=== PATIENT | female | born 1955 | race Asian ===

== ENCOUNTER 2021-06-21 00:50 | Outpatient (CLI) | payer OTHER, SELFPAY ==
--- NOTE | 2021-06-21 | DI.RAD_ITS ---
Exam(s) XR LUMBAR SPINE COMPLETE EXAM: XR LUMBAR SPINE COMPLETE CLINICAL HISTORY: LOW BACK PAIN, M54.50,S/P FALL. TECHNIQUE: 2D digital imaging was performed of the lumbar spine. Five images were obtained. AP, la teral, right oblique, left oblique and L5-S1 spot views were obtained. COMPARISON: No exams were available for comparison FINDINGS: BONES: No fracture or destructive lesion. Vertebral bodies are unremarkable. No facet hypertrophy ivelisse ntified. There is an old T11 compression fracture deformity. DISKS: Intervertebral disc spaces are maintained. Small endplate osteophytes are seen at several leve ls of the lumbar spine. ALIGNMENT: Lumbar spinal alignment is within normal limits. No spondylolysis or spondylolisthesis. SOFT TISSUE: Normal. IMPRESSION: No acute fracture or subluxation in the lumbar spine. DATA REPOSITORY: RADIATION DOSE DELIVERED:
--- NOTE | 2021-06-21 | DI.RAD_ITS ---
Exam(s) XR HIP LT COMPLETE AP PELVIS EXAM: XR HIP LT COMPLETE AP PELVIS CLINICAL HISTORY: LT HIP PAIN, S/P FALL. TECHNIQUE: 2D digital imaging was performed of the left hip. Two views were obtained. AP pelvis an d lateral left hip views were obtained. COMPARISON: No exams were available for comparison FINDINGS: BONES: Fragmentation of the superior aspect of the left femoral head is noted. There is loss of the normal spherical shape. No bony destructive lesion is seen. JOINTS: No dislocation present. SOFT TISSUE: Normal. IMPRESSION: Fragmentation and loss of volume of the left femoral head. This may represent an acute fracture. Av ascular necrosis with femoral head collapse should also be considered. Please correlate clinically. DATA REPOSITORY: RADIATION DOSE DELIVERED:
== END 2021-06-21 01:10 ==
PROVIDERS: Visit Provider Registered Nurse
DX: M54.59 Other low back pain (principal); M25.552 Pain in left hip; Z91.81 History of falling; M84.852 Other disorders of continuity of bone, left pelvic region and thigh
CPT/HCPCS: 72110; 73502

== ENCOUNTER 2021-12-15 16:08 | Outpatient (REF) | payer OTHER, SELFPAY ==
[2021-12-15 20:28] LABS: Hemoglobin A1C 6.3 % (<5.7)
[2021-12-15 20:30] LABS: Calculated LDL 209 mg/dL (<100); Cholesterol 297 mg/dL (<200); HDL Cholesterol 59 mg/dL (40-60); Triglyceride 149 mg/dL (<150)
== END 2021-12-15 16:09 | disposition home or self-care (01) ==
LOC: NCHCN 16:08
PROVIDERS: Visit Provider Registered Nurse
DX: R73.9 Hyperglycemia, unspecified (principal); E78.79 Other disorders of bile acid and cholesterol metabolism
CPT/HCPCS: 80061; 83036

== ENCOUNTER 2022-05-11 18:26 | Outpatient (REF) | payer OTHER, SELFPAY ==
[2022-05-11 14:55] LABS: Abs Immature Grans 0.02 10^3/uL (0.0-0.06); Absolute Basophil Count 0.05 10^3/uL (0.0-0.2); Absolute Eosinophil Count 0.06 10^3/uL (0.0-0.7); Absolute Lymphocyte Count 4.14 10^3/uL (1.2-3.4); Absolute Monocyte Count 0.32 10^3/uL (0.1-0.8); Absolute Neutrophil Count 3.78 10^3/uL (1.2-6.7); Basophils % 0.6; Eosinophils % 0.7; HCT 40.3 % (36.0-46.0); HGB 13.5 g/dL (11.2-15.7); Immature Grans % 0.2; Lymphocytes % 49.5; MCH 32.2 pg (27.0-33.0); MCHC 33.5 % (32.0-36.0); MCV 96 fL (80-95); Monocytes % 3.8; Neutrophils % 45.2; Platelet Count 263 10^3/uL (130-400); RBC 4.19 10^6/uL (3.93-5.22); RDW 12.9 % (11.7-14.6); RDW-SD 45.8 fL; WBC 8.37 10^3/uL (4.4-10.8)
[2022-05-11 15:15] LABS: ALT 19 U/L (14-59); AST 28 U/L (15-37); Albumin 3.8 g/dL (3.4-5.0); Alkaline Phosphatase 90 U/L (46-116); Anion Gap 5.6 mmol/L (3-11); BUN 15 mg/dL (7-18); Bilirubin, Total 0.3 mg/dL (0.2-1.0); CO2 28.4 mmol/L (21.0-32.0); CREATININE 0.7 mg/dL (0.55-1.02); Calcium 8.5 mg/dL (8.5-10.1); Chloride 103 mmol/L (98-107); Estimated GFR 94.15 (mL/min/1.73m2); Glucose 143 mg/dL (74-106); Potassium 4.6 mmol/L (3.5-5.1); Sodium 137 mmol/L (136-145); TSH 1.11 uIU/mL (0.36-3.74); Total Protein 7.4 g/dL (6.4-8.2)
== END 2022-05-11 18:27 | disposition home or self-care (01) ==
LOC: NCHCN 18:26
PROVIDERS: Visit Provider Registered Nurse
DX: R42 Dizziness and giddiness (principal)
CPT/HCPCS: 80053; 84443; 85025

== ENCOUNTER 2023-04-10 18:23 | Outpatient (REF) | payer OTHER, SELFPAY ==
[2023-04-10 21:11] LABS: Anion Gap 8.8 mmol/L (3-11); BUN 11 mg/dL (7-18); CO2 27.2 mmol/L (21.0-32.0); CREATININE 0.5 mg/dL (0.55-1.02); Calcium 9.2 mg/dL (8.5-10.1); Calculated LDL 130 mg/dL (<100); Chloride 104 mmol/L (98-107); Cholesterol 230 mg/dL (<200); Estimated GFR 101.46 (mL/min/1.73m2); Glucose 123 mg/dL (74-106); HDL Cholesterol 63 mg/dL (40-60); Potassium 4.1 mmol/L (3.5-5.1); Sodium 140 mmol/L (136-145); Triglyceride 189 mg/dL (<150)
[2023-04-10 21:21] LABS: Hemoglobin A1C 6.3 % (<5.7)
== END 2023-04-10 18:24 | disposition home or self-care (01) ==
LOC: NCHCN 18:23
PROVIDERS: Visit Provider Nurse Practitioner Family
DX: E78.5 Hyperlipidemia, unspecified (principal); R73.03 Prediabetes
CPT/HCPCS: 80048; 80061; 83036

== ENCOUNTER 2023-09-28 11:45 | Outpatient (REF) | payer OTHER, SELFPAY ==
[2023-09-28 14:39] LABS: Abs Immature Grans 0.03 10^3/uL (0.0-0.06); Absolute Basophil Count 0.06 10^3/uL (0.0-0.2); Absolute Lymphocyte Count 3.64 10^3/uL (1.2-3.4); Absolute Monocyte Count 0.49 10^3/uL (0.1-0.8); Absolute Neutrophil Count 3.86 10^3/uL (1.2-6.7); Basophils % 0.7; Eosinophils % 1.2; HCT 40.2 % (36.0-46.0); HGB 13.6 g/dL (11.2-15.7); Immature Grans % 0.4; Lymphocytes % 44.5; MCH 30.4 pg (27.0-33.0); MCHC 33.8 % (32.0-36.0); MCV 90 fL (80-95); MPV 9.3 fL (8.0-11.0); Neutrophils % 47.2; Platelet Count 274 10^3/uL (130-400); RBC 4.47 10^6/uL (3.93-5.22); RDW 12.1 % (11.7-14.6); RDW-SD 39.8 fL; WBC 8.18 10^3/uL (4.4-10.8)
[2023-09-28 15:27] LABS: Hemoglobin A1C 6.3 % (<5.7)
[2023-09-28 15:42] LABS: ALT 36 U/L (14-59); AST 32 U/L (15-37); Albumin 3.9 g/dL (3.4-5.0); Alkaline Phosphatase 71 U/L (46-116); Anion Gap 7.8 mmol/L (3-11); BUN 16 mg/dL (7-18); Bilirubin, Total 0.5 mg/dL (0.2-1.0); CO2 27.2 mmol/L (21.0-32.0); CREATININE 0.6 mg/dL (0.55-1.02); Calcium 8.2 mg/dL (8.5-10.1); Calculated LDL 79 mg/dL (<100); Chloride 107 mmol/L (98-107); Cholesterol 161 mg/dL (<200); Glucose 86 mg/dL (74-106); HDL Cholesterol 62 mg/dL (40-60); Potassium 3.7 mmol/L (3.5-5.1); Sodium 142 mmol/L (136-145); TSH (W/Ref FT4) 1.25 uIU/mL (0.36-3.74); Total Protein 7.7 g/dL (6.4-8.2); Triglyceride 104 mg/dL (<150)
== END 2023-09-28 11:46 | disposition home or self-care (01) ==
LOC: NCHCN 11:45
PROVIDERS: Visit Provider Family Medicine
DX: R53.83 Other fatigue; E78.5 Hyperlipidemia, unspecified; E11.65 Type 2 diabetes mellitus with hyperglycemia
CPT/HCPCS: 80053; 80061; 83036; 84443; 85025

== ENCOUNTER 2024-01-23 14:30 | Outpatient (REF) | payer OTHER, SELFPAY ==
--- OUTSIDE RECORDS SUMMARY | 2024-01-23 14:32 | XMS_ITS ---
Author Organization Unknown Address [address] [place] [address] [phone] Phone Care Team Providers Care Firefighter Name Role Phone NIMCO BARNES Attending Unavailable Social History Type Status Start Date End Date Code Code Syst em Smoking History Never smoker (Never Smoked) 624779529 SNOMED CT Sex Female Hospital Discharge Instructions Should you have any questions prior to discharge, please contact a member of your healthcare team. If you have left the hospital and have any questions, please contact your primary care physician. Reason For Referral No Data Found Implants Implanted LIDA Status Assigning Authority Procedure Date Lot Number Serial Number Manufacturing Date Expiration Date Distinct ID Code Brand Name Model Number Coated hip femur prosthesis , modular 0107 6119 9610 3373 1728 0427 10C2 1294 52 Active FDA Left BRYON 08/11 [id number] 2 10/27/2027 POLARS TEM 8288433 0 Metallic femoral head prosthesis 0103 5960 1047 4230 1728 1028 1018 KM26 320 Active FDA Left BRYON 08/11 [id number] 20 04/28/2028 OXINIU M 9945478 8 Non-constr ained polyethyle ne acetabular liner 0103 5960 1059 8790 1731 0918 1021 JM13 232 Active FDA Left BRYON 08/11 [id number] 32 03/19/2031 R3 0926251 8 Acetabular shell 0103 5960 1059 7571 1731 1011 1021 KW04 022 Active FDA Left BRYON 08/11 [id number] 22 04/11/2031 R3 ACETAB ULAR 7253129 8 Acetabulum prosthesis hole plug 0103 5960 1019 7634 1731 0803 1021 HM04 644 Active FDA Left BRYON 08/11 [id number] 44 02/01/2031 REFLEC TION 9821236 0 Allergies and Adverse Reactions Allergy Substance Reaction Severity Start Date Concern Status Co de Code System No Known Drug Allergies Active 803876437 SNOMED-CT Plan of Treatment MM SCREEN BILAT 10/25/2023 MM SCREEN BILAT 01/19/2022 BONE DENSITY DEXA SPINE & HIP 2 X-RAY 08/03/2021 PRE-OP TESTING 08/01/2021 PRE-OP COVID-19 TESTING 08/09/2021 Encounters Encounter Diagnosis Start Date Code Code Sys tem Avascular necrosis of bone of hip 07/05/2021 1552849 02 SNOMED-CT Personal Care Team Section Performer Name Performer Role Active Date Inactive Da te
--- OUTSIDE RECORDS SUMMARY | 2024-01-23 14:32 | XMS_ITS ---
Author Organization Unknown Address [address] [place] [address] [phone] Phone Care Team Providers Care Potato Chip Sorter Name Role Phone JULISSA LEONALENA Registered Nurse Unavailable REJI Blandon Attending Unavailable [facility]ANG [facility] Unavailable UNLISTED PROVIDER - REQUESTED Xhandoff Un available Results CT LOWER EXT WO CONTRAST LT* - Completed: 06/22/2021 16:29 LOINC: Radiation optimization:?? Al l CT scans at this facility use at least one of these dose optimization techniques: automated exposure control; mA and/or kV adjustment per patient size (includes targeted exams where dose is matched to clinical indication); or iterative reconstruction. CT OF THE PELVIS: Comparison is made with outside exams from [facility] dated 21 June 2021. There is a fracture at the left femoral head with impaction and tiny comminuted fragments. There is a surrounding joint effusion. There is no visible underlying pathologic lesion, although the bones do appear diffusely osteopenic. The right hip appears intact. The visualized portions of the pelvic organs are unremarkable. IMPRESSION: Fracture of the left femoral head with impaction. The findings could be related to avascular necrosis. Dictated by: CEO TERELL GREENWOOD MD Transcribed by: ERIS 06/23/21/09:12 [id number] Electronically Reviewed and Signed By: TERELL GREENWOOD MD 06/27/21 08:35 Copy for: 185 HEALTH INFORMATION MGMT DISCHARGED Social History Type Status Start Date End Date Code Code Syst em Smoking History Never smoker (Never Smoked) 409526476 SNOMED CT Sex Female Vital Signs Vital Sign Value Unit [place] Value [place] Date/Time Recent/Initial? Code Code System Body Mass Index 22.60 kg/m2 06/22/2021 13:42 Initial 58407 -5 LOINC Systolic Blood Pressure 136 mm[Hg] 06/22/2021 13:42 Initial 8480- 6 LOINC Diastolic Blood Pressure 82 mm[Hg] 06/22/2021 13:42 Initial 8462- 4 LOINC Body Surface Area 1.54 m2 06/22/2021 13:42 Initial 3140- 1 LOINC Height 156.006 8 cm 61.42 in 06/22/2021 13:42 Initial 8302- 2 LOINC O2 Saturation 100 % 2020 13:42 Initial 27545 -5 LOINC Pulse 78.0 /min 06/22/2021 13:42 Initial 8867- 4 LOINC Respiration 16 /min 06/22/20 13:42 Initial 9279- 1 LOINC Temperature 36.3 Catherine 97.3 F 06/22/20 13:42 Initial 8310- 5 LOINC Weight 55.00 kg 121.25 lbs 06/22/2021 13:42 Initial 58238 -7 [facility] Hospital Discharge Instructions Should you have any [...] 1294 52 Active FDA Left BRYON 08/11 [id number] 2 10/27/2027 POLARS TEM 1168085 0 Metallic femoral head prosthesis 0103 5960 1047 4230 1728 1028 1018 KM26 320 Active FDA Left BRYON 08/11 [id number] 20 04/28/2028 OXINIU M 0315468 8 Non-constr ained polyethyle ne acetabular liner 0103 5960 1059 8790 1731 0918 1021 JM13 232 Active FDA Left BRYON 08/11 [id number] 32 03/19/2031 R3 9739148 8 Acetabular shell 0103 5960 1059 7571 1731 1011 1021 KW04 022 Active FDA Left BRYON 08/11 [id number] 22 04/11/2031 R3 ACETAB ULAR 8160250 8 Acetabulum prosthesis hole plug 0103 5960 1019 7634 1731 0803 1021 04 644 Active FDA Left BRYON 08/11 [id number] 44 02/01/2031 REFLEC TION 8028457 0 Allergies and Adverse Reactions Allergy Substance Reaction Severity Start Date Concern Status Co de Code System No Known Drug Allergies Active 186588523 SNOMED-CT Plan of Treatment MM SCREEN BILAT 10/25/2023 MM SCREEN BILAT 01/19/2022 BONE DENSITY DEXA SPINE & HIP 2 X-RAY 08/03/2021 PRE-OP TESTING 08/01/2021 PRE-OP COVID-19 TESTING 08/09/2021 Encounters Encounter Diagnosis Start Date Code Code Sys tem Closed fracture of head of left femur 06/22/2021 159 [id number] SNOMED-CT Personal Care Team Section Performer Name Performer Role Active Date Inactive Da juan
--- OUTSIDE RECORDS SUMMARY | 2024-01-23 14:33 | XMS_ITS ---
Author Organization Unknown Address [address] [place] [address] [phone] Phone Care Team Providers Care Donor Services Coordinator Name Role Phone NIMCO BARNES Attending Unavailable CARTER Castanon Primary Unavailable Results XR HIP LT 2-3V* - Completed: 08/03/2021 13:24 LOINC: LEFT HIP - 2 VIEWS:Compariso n CT scan is 06/22/21. There is again seen fragmentation of the superior medial aspect of the left femoral head. There is loss of volume of the head. There is mild sclerosis of the fracture fragments. The findings may represent sequelae of avascular necrosis. Acute fracture cannot be excluded. The bones appear mildly osteopenic. The right hip is well maintained. The sacroiliac joints and symphysis pubis are intact. Dictated by: NADEEN CLARKE MD Transcribed by: TERRA 08/03/2114:41 D Sunday, August 03, 2021 1:30:47 PM [id number] Electronically Reviewed and Signed By: JAMAAL CLARKE MD 08/04/21 12:46 Copy for: 185 HEALTH INFORMATION MGMT Social History Type Status Start Date End Date Code Code Syst em Smoking History Never smoker (Never Smoked) 157692145 SNOMED CT Sex Female Hospital Discharge Instructions [...] 1294 52 Active FDA Left BRYON 08/11 [id number] 2 10/27/2027 POLARS TEM 1054947 0 Metallic femoral head prosthesis 0103 5960 1047 4230 1728 1028 1018 KM26 320 Active FDA Left BRYON 08/11 [id number] 20 04/28/2028 OXINIU M 1056753 8 Non-constr ained polyethyle ne acetabular liner 0103 5960 1059 8790 1731 0918 1021 JM13 232 Active FDA Left BRYON 08/11 [id number] 32 03/19/2031 R3 9873333 8 Acetabular shell 0103 5960 1059 7571 1731 1011 1021 KW04 022 Active FDA Left BRYON 08/11 [id number] 22 04/11/2031 R3 ACETAB ULAR 1149770 8 Acetabulum prosthesis hole plug 0103 5960 1019 7634 1731 0803 1021 HM04 644 Active FDA Left BRYON 08/11 [id number] 44 02/01/2031 REFLEC TION 5692124 0 Allergies and Adverse Reactions Allergy Substance Reaction Severity Start Date Concern Status Co de Code System No Known Drug Allergies Active 477563447 SNOMED-CT Plan of Treatment MM SCREEN BILAT 10/25/2023 MM SCREEN BILAT 01/19/2022 BONE DENSITY DEXA SPINE & HIP 2 X-RAY 08/03/2021 PRE-OP TESTING 08/01/2021 PRE-OP COVID-19 TESTING 08/09/2021 Encounters Encounter Diagnosis Start Date Code Code Sys tem Abnormal findings on diagnostic imaging of limbs 08/03 873839524 [facility]-CT Personal Care Team Section Performer Name Performer Role Active Date Inactive Da juan
--- OUTSIDE RECORDS SUMMARY | 2024-01-23 14:33 | XMS_ITS ---
Author Organization Unknown Address [address] [place] [address] [phone] Phone Care Team Providers Care Gas Truck Driver Name Role Phone NIMCO BARNES Attending Unavailable CARTER Castanon Primary Unavailable Results [facility] - [place] ect Date/Time: 08/09/2021 10:49 [facility] ID: [id number] 8 [place], [place], [id number] LOINC: 12506-5 Test Value Unit Reference Range Code Code System Flag Tier- PRE-OP 65787-2 LOINC SARS COV2 RNA: NEGATIVE REFERENCE RANGE: NEGAT 95609-4 L OINC Social History Type Status Start Date End Date Code Code Syst em Smoking History Never smoker (Never Smoked) 646265579 SNOMED CT Sex Female Hospital Discharge Instructions [...] 1294 52 Active FDA Left BRYON 08/11 [id number] 2 10/27/2027 POLARS TEM 1884522 0 Metallic femoral head prosthesis 0103 5960 1047 4230 1728 1028 1018 KM26 320 Active FDA Left BRYON 08/11 [id number] 20 04/28/2028 TAYLOR Castanon 3617424 8 Non-constr ained polyethyle ne acetabular liner 0103 5960 1059 8790 1731 0918 1021 JM13 232 Active FDA Left BRYON 08/11 [id number] 32 03/19/2031 R3 7030460 8 Acetabular shell 0103 5960 1059 7571 1731 1011 1021 KW04 022 Active FDA Left BRYON 08/11 [id number] 22 04/11/2031 R3 ACETAB ULAR 7690110 8 Acetabulum prosthesis hole plug 0103 5960 1019 7634 1731 0803 1021 HM04 644 Active FDA Left BRYON 08/11 [id number] 44 02/01/2031 REFLEC TION 7925145 0 Allergies and Adverse Reactions Allergy Substance Reaction Severity Start Date Concern Status Co de Code System No Known Drug Allergies Active 546398328 SNOMED-CT Plan of Treatment MM SCREEN BILAT 10/25/2023 MM SCREEN BILAT 01/19/2022 BONE DENSITY DEXA SPINE & HIP 2 X-RAY 08/03/2021 PRE-OP TESTING 08/01/2021 PRE-OP COVID-19 TESTING 08/09/2021 Encounters Encounter Diagnosis Start Date Code Code Sys tem Exposure to SARS-CoV-2 08/09/2021 358681511 [facility] Personal [facility] Team Section Performer Name Performer Role Active Date Inactive Da juan
--- OUTSIDE RECORDS SUMMARY | 2024-01-23 14:34 | XMS_ITS ---
Author Organization Unknown Address [address] [place] [address] [phone] Phone Care Team Providers Care Senior Budget Analyst Name Role Phone NIMCO BARNES Attending Unavailable CARTER Castanon Primary Unavailable Results XR HIP LT 2-3V* - Completed: 09/13/2021 11:50 LOINC: PELVIS/LEFT HIP, 2 VIEWS: Compared to 08/11/2021. Two views reveal satisfactory position and alignment of the components of the recently placed prosthesis.??No fracture nor loosening evident. Dictated by: SANDY CARPENTER MD Transcribed by: ERIS 09/14/21/13:53 [id number] Electronically Reviewed and Signed By: EVA CARPENTER MD 09/16/21 10:24 Copy for: 185 HEALTH INFORMATION MGMT Social History Type Status Start Date End Date Code Code Syst em Smoking History Never smoker (Never Smoked) 230931193 SNOMED CT Sex Female Hospital Discharge Instructions [...] 1294 52 Active FDA Left BRYON 08/11 [id number] 2 10/27/2027 POLARS TEM 8769781 0 Metallic femoral head prosthesis 0103 5960 1047 4230 1728 1028 1018 KM26 320 Active FDA Left BRYON 08/11 [id number] 20 04/28/2028 TAYLOR M 1913742 8 Non-constr ained polyethyle ne acetabular liner 0103 5960 1059 8790 1731 0918 1021 JM13 232 Active FDA Left BRYON 08/11 [id number] 32 03/19/2031 R3 8885241 8 Acetabular shell 0103 5960 1059 7571 1731 1011 1021 KW04 022 Active FDA Left BRYON 08/11 [id number] 22 04/11/2031 R3 ACETAB ULAR 6135527 8 Acetabulum prosthesis hole plug 0103 5960 1019 7634 1731 0803 1021 HM04 644 Active FDA Left BRYON 08/11 [id number] 44 02/01/2031 REFLEC TION 5668285 0 Allergies and Adverse Reactions Allergy Substance Reaction Severity Start Date Concern Status Co de Code System No Known Drug Allergies Active 026851673 SNOMED-CT Plan of Treatment MM SCREEN BILAT 10/25/2023 MM SCREEN BILAT 01/19/2022 BONE DENSITY DEXA SPINE & HIP X-RAY 08/03/2021 PRE-OP TESTING 08/01/2021 PRE-OP COVID-19 TESTING 08/09/2021 Encounters Encounter Diagnosis Start Date Code Code Sys tem Hip joint prosthesis present 09/13/2021 687969991 SNOMED-CT Personal Care Team Section Performer Name Performer Role Active Date Inactive Parish martinez
--- OUTSIDE RECORDS SUMMARY | 2024-01-23 14:34 | XMS_ITS ---
Author Organization Unknown Address [address] [place] [address] [phone] Phone Care Team Providers Care Lap Winder Name Role Phone CARTER Castanon Attending Unavailable Results BD DXA BONE DENSITY HIP AND SPINE - Completed: 01/19/2022 16:14 LOINC: DEXA SCAN:No priors. The bon e mineral density measurements of the lumbar spine correspond to a total T-score of negative 3.9, in the osteoporotic range. The bone mineral density measurements of the right hip correspond to a total T-score of negative 1.9 and a femoral neck T-score of negative 2.8, also in the osteoporotic range. IMPRESSION:Osteoporosis of the lumbar spine and left hip. Dictated by: CEO TERELL GREENWOOD MD Transcribed by: TERRA 01/20/2207:10 D , January 19, 2022 2:02:35 PM [id number] Electronically Reviewed and Signed By: TERELL GREENWOOD MD 02/05/22 12:15 Copy for: CARTER Castanon via fax Copy for: 185 HEALTH INFORMATION MGMT MM SCREENING BILAT MAMMO W T DAPNHIE W CAD - Completed: 01/19/2022 13:43 LOINC: Digital mammograms were inte rpreted according to the usual protocol including computer analysis with CADx system including tomosynthesis. This is a baseline examination. The breasts are composed of scattered fibroglandular densities. No suspicious masses or suspicious microcalcifications are seen. IMPRESSION:Negative mammogram. Yearly screening mammography is recommended. BI-RADS Assessment: Category 1 - Negative BREAST DENSITY: b. There are scattered areas of fibroglandular density. Dictated by: CEO TERELL GREENWOOD MD Transcribed by: TERRA 01/20/2208:14 D , January 19, 2022 2:50:02 PM [id number] Electronically Reviewed and Signed By: TERELL GREENWOOD MD 02/05/22 12:15 TECHNOLOGIST: RT Hilary (R) (M) Copy for: [place] Castanon via fax Copy for: 185 HEALTH INFORMATION MGMT Social History Type Status Start Date End Date Code Code Syst em Smoking History Never smoker (Never Smoked) 046823308 SNOMED CT Sex Female Hospital Discharge Instructions [...] 1294 52 Active FDA Left BRYON 08/11 [id number] 2 10/27/2027 POLARS TEM 2262229 0 Metallic femoral head prosthesis 0103 5960 1047 4230 1728 1028 1018 KM26 320 Active FDA Left BRYON 08/11 [id number] 20 04/28/2028 OXINIU M 2456787 8 Non-constr ained polyethyle ne acetabular liner 0103 5960 1059 8790 1731 0918 1021 JM13 232 Active FDA Left BRYON 08/11 70IP293 32 03/19/2031 R3 3645444 8 Acetabular shell 0103 5960 1059 7571 1731 1011 1021 KW04 022 Active FDA Left BRYON 08/11 [id number] 22 04/11/2031 R3 ACETAB ULAR 2476266 8 Acetabulum prosthesis hole plug 0103 5960 1019 7634 1731 0803 1021 HM04 644 Active FDA Left BRYON 08/11 [id number] 44 02/01/2031 REFLEC TION 2518340 0 Allergies and Adverse Reactions Allergy Substance Reaction Severity Start Date Concern Status Co de Code System No Known Drug Allergies Active 181436452 SNOMED-CT Plan of Treatment MM SCREEN BILAT 10/25/2023 MM SCREEN BILAT 01/19/2022 BONE DENSITY DEXA SPINE & HIP 2 X-RAY 08/03/2021 PRE-OP TESTING 08/01/2021 PRE-OP COVID-19 TESTING 08/09/2021 Encounters Encounter Diagnosis Start Date Code Code Sys tem Encounter for screening mamm ogram for malignant neoplasm of breast 01/19/2022 SNOMED-CT Personal Care Team Section Performer Name Performer Role Active Date Inactive Da te
--- OUTSIDE RECORDS SUMMARY | 2024-01-23 14:34 | XMS_ITS ---
Author Organization Unknown Address [address] [place] [address] [phone] Phone Care Team Providers Care Laundry Route Driver Name Role Phone NIMCO BARNES Attending Unavailable ENZO Amaya MORGUE LIBRARIAN Unavailable GABRIELLA Chow Nurse Practitioner Unavailable CARTER Castanon Primary Unavailable Results XR HIP LT 2-3V* - Completed: 08/11/2021 11:39 LOINC: LEFT HIP IN THE OR:fluorosco py was utilized by Dr. Llanos during the performance of a left total hip replacement. Please refer to the Procedure Report for complete details. Total dose is 3.88 mGy Dictated by: NADEEN CLARKE MD Transcribed by: TERRA 08/11/21/10:52 D August 9:21:04 AM [id number] Electronically Reviewed and Signed By: JAMAAL CLARKE MD 08/11/21 14:45 Copy for: 185 HEALTH INFORMATION MGMT Social History Type Status Start Date End Date Code Code Syst em Smoking History Never smoker (Never Smoked) 884621008 SNOMED CT Sex Female Vital Signs Vital Sign Value Unit [place] Value [place] Unit Date/Time Recent/Initial? Code Code System Body Mass Index 23.44 kg/m2 08/10/2021 11:58 Initial 47153 -5 LOINC Systolic Blood Pressure 110 mm[Hg] 08/11/2021 12:01 Initial 8480- 6 LOINC Diastolic Blood Pressure 75 mm[Hg] 08/11/2021 12:01 Initial 8462- 4 LOINC Body Surface Area 1.52 m2 08/10/2021 11:58 Initial 3140- 1 LOINC Height 152.400 0 cm 60.00 in 08/10/2021 11:58 Initial 8302- 2 LOINC O2 Saturation 99 % 2021 12:01 Initial 94487 -5 LOINC Pulse 67.0 /min 08/11/2021 12:01 Initial 8867- 4 [facility] Respiration 13 /min 08/11/19 12:01 Initial 9279- 1 INC Temperature 36.0 Catherine 96.8 F 08/11/19 12:01 Initial 8310- 5 [facility] Weight 54.43 kg 120.00 lbs 08/10/2021 11:58 Initial 96370 -7 [facility] Hospital Discharge Instructions Should you have any questions prior to discharge, please contact a member of your healthcare team. If you have left the hospital and have any questions, please contact your primary care physician. Reason For Referral No Data Found Procedures Procedure Name Date Status Code Code Syste m Arthroplasty, Acetabular/Pro ximal Femoral Prosthetic Replacement, w/wo Autograft/Allograft 08/11/2021 completed 71054 CPT Anesthesia, Open Proc Involv ing Hip Joint; Total Hip Arthroplasty 08/11/2021 completed 45483 CPT Implants Implanted LIDA Status Assigning Authority Procedure Date Lot Number Serial Number Manufacturing Date Expiration Date Distinct ID Code Brand Name Model Number Coated hip femur prosthesis , modular 0107 6119 9610 3373 1728 0427 10C2 1294 52 Active FDA Left BRYON 08/11 [id number] 2 10/27/2027 POLARS TEM 9900395 0 Metallic femoral head prosthesis 0103 5960 1047 4230 1728 1028 1018 KM26 320 Active FDA Left BRYON 08/11 [id number] 20 04/28/2028 OXINIU M 0237421 8 Non-constr ained polyethyle ne acetabular liner 0103 5960 1059 8790 1731 0918 1021 JM13 232 Active FDA Left BRYON 08/11 [id number] 32 03/19/2031 R3 8795334 8 Acetabular shell 0103 5960 1059 7571 1731 1011 1021 KW04 022 Active FDA Left BRYON 08/11 [id number] 22 04/11/2031 R3 ACETAB ULAR 4493093 8 Acetabulum prosthesis hole plug 0103 5960 1019 7634 1731 0803 1021 HM04 644 Active FDA Left BRYON 08/11 [id number] 44 02/01/2031 REFLEC TION 7623571 0 Allergies and Adverse Reactions Allergy Substance Reaction Severity Start Date Concern Status Co de Code System No Known Drug Allergies Active 384220487 SNOMED-CT Plan of Treatment MM SCREEN BILAT 10/25/2023 MM SCREEN BILAT 01/19/2022 BONE DENSITY DEXA SPINE & HIP 2 X-RAY 08/03/2021 PRE-OP TESTING 08/01/2021 PRE-OP COVID-19 TESTING 08/09/2021 Encounters Encounter Diagnosis Start Date Code Code Sys tem Other osteonecrosis, left femur 08/11/2021 SNOMED-CT Personal Care Team Section Performer Name Performer Role Active Date Inactive Da te
--- OUTSIDE RECORDS SUMMARY | 2024-01-23 14:34 | XMS_ITS ---
Author Organization Unknown Address [address] [place] [address] [phone] Phone Care Team Providers Care Pathology Specialist Name Role Phone NIMCO BARNES Attending Unavailable CARTER Castanon Primary Unavailable Results PT PROTHROMBIN TIME* - Colle ct Date/Time: 08/01/2021 16:05 [facility] ID: [id number] [address] [place] [address], [address] LOINC: 5902-2 Test Value Unit Reference Range Code Code System Flag PROTIME 10.1 seconds L=9.3 H=11.4 5902-2 LOINC INR 0.99 L=2.00 H=3.00 09568-9 LOINC L TYPE AND SCREEN* - Collect D ate/Time: 08/01/2021 16:05 [facility] ID: [id number] [address] [place] [address], [phone] LOINC: Test Value Unit Reference Range Code Code System Flag Blood Group B 883-9 LOINC Rh (D) POSITIVE 39058-1 LOINC Antibody Screen NEGATIVE 1005-8 LOINC NICOTINE AND METABOLITE(COTI NINE) URINE - Collect Date/Time: 08/01/2021 16:05 [facility] ID: [id number] [address] [place] [address], [id number] LOINC: 3854-7 Test Value Unit Reference Range Code Code System Flag Nicotine 30 <5.0 3854-7 LOINC H Cotinine 46 ng/mL <5.0 79854-9 LOINC H Nornicotine See Below <2.0 24565-4 LOINC Anabasine < 2.0 ng/mL <2.0 87445-3 LOINC MRSA/MSSA NASAL COMPLETE BY PCR* - Collect Date/Time: 08/01/2021 16:05 [facility] ID: [id number] [address] [place], [place], [id number] LOINC: Test Value Unit Reference Range Code Code System Flag MRSA NEGATIVE Normal: Negative 48908-4 LOINC MSSA NEGATIVE Normal: Negative CBC W/ DIFFERENTIAL* - Colle ct Date/Time: 08/01/2021 16:05 [facility] ID: [id number] [address] [place], [place], [address] LOINC: 66667-1 Test Value Unit Reference Range Code Code System Flag WBC 9.85 th/cmm L=5.00 H=10.00 6690-2 LOINC NEUT % 50.4 % L=40.0 H=80.0 LYMPH % 41.4 % L=10.0 H=50.0 MONO % 6.6 % L=2.0 H=12.0 52541-9 LOINC EOS % 0.8 % L=0.0 H=8.0 BASO % 0.6 % L=0.0 H=3.0 IG % 0.2 % L=0.0 H=1.1 2514-8 LOINC NRBC % 0.0 % L=0.0 H=0.0 68255-5 LOINC NEUT abs count 5.0 th/cmm L=1.6 H=8.4 751-8 LOINC LYMPH abs count 4.1 th/cmm L=1.5 H=4.0 731-0 LOINC H MONO abs count 0.7 th/cmm L=0.2 H=1.0 742-7 LOINC EOS abs count 0.1 th/cmm L=0.0 H=0.5 711-2 LOINC BASO abs count 0.1 th/cmm L=0.0 H=0.2 704-7 LOINC IG abs count 0.0 th/cmm L=0.0 H=0.1 48163-5 LOINC NRBC abs count 0.0 mil/cmm L=0.0 H=0.0 61222-9 LOINC RBC 4.13 mil/cmm L=3.90 H=5.40 789-8 LOINC HEMOGLOBIN 13.1 gm/dL L=12.0 H=16.0 718-7 LOINC HEMATOCRIT 39 % L=37 H=47 4544-3 LOINC MCV 94 fL L=82 H=92 787-2 LOINC H MCH 31.7 pg L=27.0 H=31.0 785-6 LOINC H MCHC 33.7 % L=32.0 H=36.0 786-4 LOINC RDW-SD 42.7 fL L=39.0 H=49.0 788-0 LOINC PLATELET COUNT 303 th/cmm L=150 H=450 777-3 LOINC BASIC METABOLIC PANEL (BMP) - Collect Date/Time: 08/01/2021 16:05 [facility] ID: [id number] [address] [place], [place], [address] LOINC: 28650-3 Test Value Unit Reference Range Code Code System Flag GLUCOSE 105 mg/dL L=70 H=116 2345-7 LOINC BUN 22 mg/dL L=6 H=25 3094-0 LOINC CREATININE 0.63 mg/dL L=0.51 H=0.95 2160-0 LOINC SODIUM SERUM 141 mmol/L L=136 H=145 2951-2 LOINC POTASSIUM SERUM 4.0 mmol/L L=3.4 H=5.2 2823-3 LOINC CHLORIDE SERUM 104 mmol/L L=96 H=110 2075-0 LOINC CARBON DIOXIDE (CO2) 28 mmol/L L=22 H=34 2028-9 LOINC ANION GAP 9.0 mmol/L 92352-8 LOINC CALCIUM SERUM 8.9 mg/dL L=8.2 H=10.2 48499-1 LOINC AGE 65 years eGFR (non-Afr.Amer.) 94 mL/min 23685-8 LOINC eGFR (Afr-Tristanian) 114 mL/min 25050-4 LOINC Social History Type Status Start Date End Date Code Code Syst em Smoking History Never smoker (Never Smoked) 731070974 SNOMED CT Sex Female Hospital Discharge Instructions [...] 1294 52 Active FDA Left BRYON 08/11 [id number] 2 10/27/2027 POLARS TEM 3438491 0 Metallic femoral head prosthesis 0103 5960 1047 4230 1728 1028 1018 KM26 320 Active FDA Left BRYON 08/11 [id number] 20 04/28/2028 OXINIU M 3340590 8 Non-constr ained polyethyle ne acetabular liner 0103 5960 1059 8790 1731 0918 1021 JM13 232 Active FDA Left BRYON 08/11 95TH407 32 03/19/2031 R3 0278540 8 Acetabular shell 0103 5960 1059 7571 1731 1011 1021 KW04 022 Active FDA Left BRYON 08/11 [id number] 22 04/11/2031 R3 ACETAB ULAR 0863511 8 Acetabulum prosthesis hole plug 0103 5960 1019 7634 1731 0803 1021 HM04 644 Active FDA Left BRYON 08/11 32MB397 44 02/01/2031 REFLEC TION 9544335 0 Allergies and Adverse Reactions Allergy Substance Reaction Severity Start Date Concern Status Co de Code System No Known Drug Allergies Active 062654312 SNOMED-CT Plan of Treatment MM SCREEN BILAT 10/25/2023 MM SCREEN BILAT 01/19/2022 BONE DENSITY DEXA SPINE & HIP 2 X-RAY 08/03/2021 PRE-OP TESTING 08/01/2021 PRE-OP COVID-19 TESTING 08/09/2021 Encounters Encounter Diagnosis Start Date Code Code Sys tem Encounter for other preprocedural examination 08/01/19 SNOMED-CT Personal Care Team Section Performer Name Performer Role Active Date Inactive Da te
--- OUTSIDE RECORDS SUMMARY | 2024-01-23 14:35 | XMS_ITS ---
Author Organization Unknown Address [address] [place] [address] [phone] Phone Care Team Providers Care Family Life Educator Name Role Phone PROVOST LATHAM Attending Unavailable Results MM SCREENING BILAT MAMMO W T DAPHNIE W CAD - Completed: 10/25/2023 15:52 LOINC: [facility] [place], [place] [address] PACS MANAGER MERCHANDISE REPORT Patient Name: FACUNDO LEMOS MRN: Sex: : Age: [id number] F 1955 68 Account: Accession: Admit: StayType: [id number] 10/25/2023 O/P Ordered: Order ID: Submitted: Ordering Provider: 10/25/2023 15:30 [id number] KT YEISON FRANCIS Completed: Technologist: Resulted: 10/25/2023 15:52 BMM 10/25/2023 16:07 Study Description: MM SCREENING BILAT MAMMO W CLARENCE W CAD Study Reason: Screening COMPARISON: 2021 FINDINGS: Mammography/Tomosynthesis: Masses: None seen. Architectural Distortion: None seen. Microcalcifictions: No suspicious pleomorphic-type are seen. Skin Thickening/Nipple Retraction: None. IMPRESSION: 1. No evidence of malignancy is noted. 2. Unless there is more urgent need, follow-up screening mammography is recommended, as per [employer] guidelines. BI-RADS Category 1, negative mammogram. Breast density category B, scattered fibroglandular densities. Breast density Category C or D implies that the patient has dense breast tissue. Dense breast tissue can make it harder to find cancer on a mammogram. Dense breast tissue is also associated with an increased risk of breast cancer. This information about the result of the mammogram report was provided to the patient to raise their awareness. Use this report when you speak with the patient about their risks for breast cancer, which includes their family history. At that time, you may recommend additional screening tests (Ultrasound or MRI) as these tests may add significant information. A negative radiographic report should not delay biopsy if a dominant or clinically suspicious mass is present. Up to ten percent of cancers are not identified on mammography. A negative report may reinforce clinical impression. Adenosis and dense breasts may obscure an underlying neoplasm. False positive reports average 6 to 10%. Patient will receive a letter notifying them of these results. Report Digitally Signed by Mariel Martinez on 10/25/2023 04:07 PM EDT Social History Type Status Start Date End Date Code Code Syst em Smoking History Never smoker (Never Smoked) 520638662 SNOMED CT Sex Female Hospital Discharge Instructions [...] 1294 52 Active FDA Left BRYON 08/11 [id number] 2 10/27/2027 POLARS TEM 5185043 0 Metallic femoral head prosthesis 0103 5960 1047 4230 1728 1028 1018 KM26 320 Active FDA Left BRYON 08/11 [id number] 20 04/28/2028 OXINIU M 0714715 8 Non-constr ained polyethyle ne acetabular liner 0103 5960 1059 8790 1731 0918 1021 JM13 232 Active FDA Left BRYON 08/11 65ZU230 32 03/19/2031 R3 4501094 8 Acetabular shell 0103 5960 1059 7571 1731 1011 1021 KW04 022 Active FDA Left BRYON 08/11 [id number] 22 04/11/2031 R3 ACETAB ULAR 0220793 8 Acetabulum prosthesis hole plug 0103 5960 1019 7634 1731 0803 1021 HM04 644 Active FDA Left BRYON 08/11 45BK275 44 02/01/2031 REFLEC TION 9638055 0 Allergies and Adverse Reactions Allergy Substance Reaction Severity Start Date Concern Status Co de Code System No Known Drug Allergies Active 094103364 SNOMED-CT Plan of Treatment MM SCREEN BILAT 10/25/2023 MM SCREEN BILAT 01/19/2022 BONE DENSITY DEXA SPINE & HIP 2 X-RAY 08/03/2021 PRE-OP TESTING 08/01/2021 PRE-OP COVID-19 TESTING 08/09/2021 Encounters Encounter Diagnosis Start Date Code Code Sys tem Screening mammography 10/25/2023 43845448 SNOMED -CT Personal Care Team Section Performer Name Performer Role Active Date Inactive Da te
--- OUTSIDE RECORDS SUMMARY | 2024-01-23 14:35 | XMS_ITS ---
Author Organization Unknown Address [address] [place] [address] [phone] Phone Care Team Providers Care Media Clerk Name Role Phone NIMCO BARNES Attending Unavailable CARTER Castanon Primary Unavailable Results XR PELVIS AND HIP LAT LT* - Completed: 08/24/2022 16:11 LOINC: [facility] [place], [place] [address] PACS STAFF DEVELOPMENT COORDINATOR REPORT Patient Name: FACUNDO LEMOS MRN: Sex: : Age: [id number] F 1955 66 Account: Accession: Admit: StayType: [id number] 08/24/2022 CLINIC Ordered: Order ID: Submitted: Ordering Provider: 08/24/2022 14:54 [id number] MOLLY KEEN Completed: Technologist: Resulted: 08/24/2022 14:54 08/24/2022 15:01 Study Description: XR PELVIS AND HIP LAT LT Study Reason: lt hip pain Technique: 2D digital imaging was performed. 2 views were obtained. COMPARISON: 13 September 2021 FINDINGS: Bones: No acute fractures present. No bony destructive lesion is seen. Joints: No dislocation is present. No change in alignment of left hip prosthesis. Right hip joint space is maintained. There is a shallow right acetabulum. Soft tissues: Unremarkable. IMPRESSION: Stable appearance of left hip prosthesis. Report Digitally Signed by Mariel Martinez on 08/24/2022 03:01 PM EST Social History Type Status Start Date End Date Code Code Syst em Smoking History Never smoker (Never Smoked) 442318680 SNOMED CT Sex Female Hospital Discharge Instructions [...] 1294 52 Active FDA Left BRYON 08/11 [id number] 2 10/27/2027 POLARS TEM 6820617 0 Metallic femoral head prosthesis 0103 5960 1047 4230 1728 1028 1018 KM26 320 Active FDA Left BRYON 08/11 05EP262 20 04/28/2028 OXINIU M 1693859 8 Non-constr ained polyethyle ne acetabular liner 0103 5960 1059 8790 1731 0918 1021 JM13 232 Active FDA Left BRYON 08/11 30ID502 32 03/19/2031 R3 0747055 8 Acetabular shell 0103 5960 1059 7571 1731 1011 1021 KW04 022 Active FDA Left BRYON 08/11 [id number] 22 04/11/2031 R3 ACETAB ULAR 5819659 8 Acetabulum prosthesis hole plug 0103 5960 1019 7634 1731 0803 1021 HM04 644 Active FDA Left BRYON 08/11 [id number] 44 02/01/2031 REFLEC TION 7739730 0 Allergies and Adverse Reactions Allergy Substance Reaction Severity Start Date Concern Status Co de Code System No Known Drug Allergies Active 247627590 SNOMED-CT Plan of Treatment MM SCREEN BILAT 10/25/2023 MM SCREEN BILAT 01/19/2022 BONE DENSITY DEXA SPINE & HIP 2 X-RAY 08/03/2021 PRE-OP TESTING 08/01/2021 PRE-OP COVID-19 TESTING 08/09/2021 Encounters Encounter Diagnosis Start Date Code Code Sys tem Hip joint prosthesis present 08/24/2022 185831377 SNOMED-CT Personal Care Team Section Performer Name Performer Role Active Date Inactive Da te
--- OUTSIDE RECORDS SUMMARY | 2024-01-23 14:35 | XMS_ITS ---
Author Organization Unknown Address [address] [place] [address] [phone] Phone Care Team Providers Care Fee Clerk Name Role Phone SAY Amaya Attending Unavailable CARTER Castanon Primary Unavailable Social History Type Status Start Date End Date Code Code Syst em Smoking History Never smoker (Never Smoked) 811435536 SNOMED CT Sex Female Hospital Discharge Instructions [...] 1294 52 Active FDA Left BRYON 08/11 [id number] 2 10/27/2027 POLARS TEM 0812268 0 Metallic femoral head prosthesis 0103 5960 1047 4230 1728 1028 1018 KM26 320 Active FDA Left BRYON 08/11 25LN785 20 04/28/2028 OXINIU M 4170839 8 Non-constr ained polyethyle ne acetabular liner 0103 5960 1059 8790 1731 0918 1021 JM13 232 Active FDA Left BRYON 08/11 58BA674 32 03/19/2031 R3 8528611 8 Acetabular shell 0103 5960 1059 7571 1731 1011 1021 KW04 022 Active FDA Left BRYON 08/11 73RJ915 22 04/11/2031 R3 ACETAB ULAR 6466394 8 Acetabulum prosthesis hole plug 0103 5960 1019 7634 1731 0803 1021 HM04 644 Active FDA Left BRYON 08/11 12IM330 44 02/01/2031 REFLEC TION 7321241 0 Allergies and Adverse Reactions Allergy Substance Reaction Severity Start Date Concern Status Co de Code System No Known Drug Allergies Active 874731988 SNOMED-CT Plan of Treatment MM SCREEN BILAT 10/25/2023 MM SCREEN BILAT 01/19/2022 BONE DENSITY DEXA SPINE & HIP 2 X-RAY 08/03/2021 PRE-OP TESTING 08/01/2021 PRE-OP COVID-19 TESTING 08/09/2021 Encounters Encounter Diagnosis Start Date Code Code Sys tem Cardiac murmur, unspecified 07/04/2022 SNOMED-CT Personal Care Team Section Performer Name Performer Role Active Date Inactive Da te
--- OUTSIDE RECORDS SUMMARY | 2024-01-23 14:35 | XMS_ITS | Data Portability ---
Author Organization [facility], [facility] [place] [address] Assessment Encounter Date Assessment Date Assessment LastModified by Organization Details LastModified Time 09/28/2023 09/28/2023 The total time devoted to today's encounter, including both the jhxt-ff-qhcs time with the patient and/or family/caregiver and gzb-icxo-zf-face time I personally spent is 45 minutes. [email or web address] Not available 10/08/2023 04:45:38 10/17/2023 10/17/2023 The total time devoted to today's encounter, including both the zzmo-al-cuoq time with the patient and/or family/caregiver and xau-ixgr-zl-face time I personally spent is 45 minutes. 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 Recent labs reviewed with patient. Questions answered. LIfestyle modifications discussed including low fat, low sodium diet, exercise regimen, stress reduction and good sleep hygiene. [email or web address] Not available 10/17/2023 11:40:29 01/23/2024 01/23/2024 The total time devoted to today's encounter, including both the vrzj-xl-uztm time with the patient and/or family/caregiver and yyk-hvnc-ru-face time I personally spent is 50 minutes. The patient is a 68-year-old female who presents with concerns about tiredness and shortness of breath. She has prediabetes, which is being managed with metformin. The patient has experienced weight loss and improved A1c levels since starting the medication. However, her blood sugar levels are still slightly above normal. The patient's tiredness may be related to her vegan diet and the possibility of anemia due to insufficient iron intake. The shortness of breath may be associated with her 's smoking in the house, which could be affecting her respiratory health. [email or web address] Not available 01/23/2024 11:56:41 Plan of Treatment Reminders Order Date Submit Date Provider Last Modified By Organization Details Last Modified Time Details Appointments Follow Up 2023 11:00A M YEISON TITO Not available Not available Not available Follow Up 2023 11:00A M YEISON TITO Not available Not available Not available Lab CMP, serum or plasma 2023 [facility] [address] [place] [address] [place], [address], 09/28/2023 15:48:54 HbA1c (hemoglob in A1c), blood [address] [facility] (Registration ), [address] [place] [address] [place], [address], 10/05/2023 06:46:59 lipid panel, serum [address] [facility] (Registration ), [address] [place] [address] [place], [address], 10/05/2023 06:47:05 TSH, serum, reflex free T4 [address] [facility] (Registration ), [address] [place] [address] [place], [address], 10/05/2023 06:46:44 CBC w/ diff [address] [facility] (Registration ), [address] [place] [address] [place], [address], 10/05/2023 06:46:52 hemoglobi n A1C, fingersti ck 2023 024 [facility], [address] [facility], [place], [address], 01/23/2024 11:59:40 CBC 2023 [email or web address] [facility] (Registration ), [address] [place] [address] [place], [address], 01/23/2024 11:59:40 Referral None recorded. Procedures None recorded. Surgeries None recorded. Imaging MAMMO, screening , bilateral 2023 [facility] - Radiology, [address] [place], [address], 01/02/2024 11:47:35 Medication Orders albuterol sulfate HFA 90 mcg/actua tion aerosol inhaler 2023 [id number], [address], [place], [id number], 09/28/2023 12:46:10 metformin 500 mg tablet 2023 024 [facility] #[id number], [address], [place], [place], [id number], 10/17/2023 11:41:[address] 10 mg tablet 2023 024 [email or web address] [facility] #[id number], [address], [place], [place], [id number], 01/23/2024 11:52:58 triamcino lone acetonide 0.1 % topical cream 2023 024 [facility] #[id number], [address], [place], [place], [id number], 01/23/2024 11:36:49 Patient TargetsNo targets recorded. Patient Instructions Encounter Date Encounter Id Patient Instructions Last Modified By Organization Details Last Modified Time 10/17/2023 [id number] I recommend getting 30+ mins of exercise most days and eating a healthy diet, rich in fruits, vegetables, and whole grains while limiting saturated fats and sugar/simple carbohydrates (soda, cookies, breads, pastas, etc). [email or web address] Not available 10/17/2023 11:39:01 01/23/2024 [id number] - Continue takstoney g metformin as prescribed - Maintain a healthy diet and exercise regimen - Consider an iron supplement or dietary modifications if blood test indicates anemia or low iron levels - Obtain an air purifier for the bedroom to improve air quality - Schedule a follow-up appointment in three months to evaluate progress - Reach out to the career services officer for assistance with obtaining an air purifier if needed [email or web address] Not available 01/23/2024 11:52:12 Reason for Referral None Reported. Results Created Date Observation Date Name Description Value Unit Range Abnormal Flag LastModifiedBy Organization Detail LastModifiedTime 09/28/19 24 09/28/2023 COMPL ETE BLOOD COUNT W/DIF F WBC 8.18 10_3/ uL 4.4-10 .8 normal Not Available [address] [place], [address] 09/28/2023 14:45:43 09/28/19 24 09/28/2023 COMPL ETE BLOOD COUNT W/DIF F RBC 4.47 10_6/ uL 3.93-5 .22 normal Not Available [address] [place], [address] 09/28/2023 14:45:43 09/28/19 24 09/28/2023 COMPL ETE BLOOD COUNT W/DIF F HGB 13.6 g/dL 11.2-1 5.7 normal Not Available [address] [place], [address] 09/28/2023 14:45:43 09/28/19 24 09/28/2023 COMPL ETE BLOOD COUNT W/DIF F HCT 40.2 % 36.0-4 6.0 normal Not Available [address] [place], [address] 09/28/2023 14:45:43 09/28/19 24 09/28/2023 COMPL ETE BLOOD COUNT W/DIF F MCV 90 fL 80-95 normal Not Available [facility] [address] [place], [address] 09/28/2023 14:45:43 09/28/19 24 09/28/2023 COMPL ETE BLOOD COUNT W/DIF F MCH 30.4 pg 27.0-3 3.0 normal Not Available [address] [place], [address] 09/28/2023 14:45:43 09/28/19 24 09/28/2023 COMPL ETE BLOOD COUNT W/DIF F MCHC 33.8 % 32.0-3 6.0 normal Not Available [address] [place], [address] 09/28/2023 14:45:43 09/28/19 24 09/28/2023 COMPL ETE BLOOD COUNT W/DIF F RDW 12.1 % 11.7-1 4.6 normal Not Available [address] [place], [address] 09/28/2023 14:45:43 09/28/19 24 09/28/2023 COMPL ETE BLOOD COUNT W/DIF F platelet count 274 10_3/ uL 130-40 0 normal Not Available [address] [place], [address] 09/28/2023 14:45:43 09/28/19 24 09/28/2023 COMPL ETE BLOOD COUNT W/DIF F MPV 9.3 fL 8.0-11 .0 normal Not Available [address] [place], [address] 09/28/2023 14:45:43 09/28/19 24 09/28/2023 COMPL ETE BLOOD COUNT W/DIF F neutrophils % 47.2 Not Available [address] [place], [address] 09/28/2023 14:45:43 09/28/19 24 09/28/2023 COMPL ETE BLOOD COUNT W/DIF F lymphocytes % 44.5 Not Available [address] [place], [address] 09/28/2023 14:45:43 09/28/19 24 09/28/2023 COMPL ETE BLOOD COUNT W/DIF F monocytes % 6.0 Not Available [address] [place], [address] 09/28/2023 14:45:43 09/28/19 24 09/28/2023 COMPL ETE BLOOD COUNT W/DIF F eosinophils % 1.2 Not Available [address] [place], [address] 09/28/2023 14:45:43 09/28/19 24 09/28/2023 COMPL ETE BLOOD COUNT W/DIF F basophils % 0.7 Not Available [address] [place], [address] 09/28/2023 14:45:43 09/28/19 24 09/28/2023 COMPL ETE BLOOD COUNT W/DIF F immature grans % 0.4 Not Available [address] [place], [address] 09/28/2023 14:45:43 09/28/19 24 09/28/2023 COMPL ETE BLOOD COUNT W/DIF F nucleated RBC 0.0 % 0.0-0. 3 normal Not Available [address] [place], [address] 09/28/2023 14:45:43 09/28/19 24 09/28/2023 COMPL ETE BLOOD COUNT W/DIF F absolute neutrophil count 3.86 10_3/ uL 1.2-6. 7 normal Not Available [address] [place], [address] 09/28/2023 14:45:43 09/28/19 24 09/28/2023 COMPL ETE BLOOD COUNT W/DIF F absolute lymphocyte count 3.64 10_3/ uL 1.2-3. 4 high Not Available [address] [place], [address] 09/28/2023 14:45:43 09/28/19 24 09/28/2023 COMPL ETE BLOOD COUNT W/DIF F absolute monocyte count 0.49 10_3/ uL 0.1-0. 8 normal Not Available [address] [place], [address] 09/28/2023 14:45:43 09/28/19 24 09/28/2023 COMPL ETE BLOOD COUNT W/DIF F absolute eosinophil count 0.10 10_3/ uL 0.0-0. 7 normal Not Available [address] [place], [address] 09/28/2023 14:45:43 09/28/19 24 09/28/2023 COMPL ETE BLOOD COUNT W/DIF F absolute basophil count 0.06 10_3/ uL 0.0-0. 2 normal Not Available [address] [place], [address] 09/28/2023 14:45:43 09/28/19 24 09/28/2023 HEMOG LOBIN A1C hemoglobin A1C 6.3 % <5.7 high Not Available [address] [place], [address] 09/28/2023 15:31:52 09/28/19 24 09/28/2023 COMPR EHENS KI METAB OLIC PANEL calcium 8.2 mg/dL 8.5-10 .1 low Not Available [address] [place], [address] 09/28/2023 15:48:54 09/28/19 24 09/28/2023 COMPR EHENS KI METAB OLIC PANEL glucose 86 mg/dL 74-106 normal Not Available [address] [place], [address] 09/28/2023 15:48:54 09/28/19 24 09/28/2023 COMPR EHENS KI METAB OLIC PANEL BUN 16 mg/dL 7-18 normal Not Available [address] [place], [address] 09/28/2023 15:48:54 09/28/19 24 09/28/2023 COMPR EHENS KI METAB OLIC PANEL creatinine 0.6 mg/dL 0.55-1 .02 normal Not Available [address] [place], [address] 09/28/2023 15:48:54 09/28/19 24 09/28/2023 COMPR EHENS KI METAB OLIC PANEL estimated GFR 97.10 mL/min /1.73m 2 Not Available [address] [place], [address] 09/28/2023 15:48:54 09/28/19 24 09/28/2023 COMPR EHENS KI METAB OLIC PANEL total protein 7.7 g/dL 6.4-8. 2 normal Not Available [address] [place], [address] 09/28/2023 15:48:54 09/28/19 24 09/28/2023 COMPR EHENS KI METAB OLIC PANEL albumin 3.9 g/dL 3.4-5. 0 normal Not Available [address] [place], [address] 09/28/2023 15:48:54 09/28/19 24 09/28/2023 COMPR EHENS KI METAB OLIC PANEL bilirubin, total 0.5 mg/dL 0.2-1. 0 normal Not Available [address] [place], [address] 09/28/2023 15:48:54 09/28/19 24 09/28/2023 COMPR EHENS KI METAB OLIC PANEL alk phos 71 U/L 46-116 normal Not Available [address] [place], [address] 09/28/2023 15:48:54 09/28/19 24 09/28/2023 COMPR EHENS KI METAB OLIC PANEL sodium 142 mmol/ L 136-14 5 normal Not Available [address] [place], [address] 09/28/2023 15:48:54 09/28/19 24 09/28/2023 COMPR EHENS KI METAB OLIC PANEL potassium 3.7 mmol/ L 3.5-5. 1 normal Not Available [address] [place], [address] 09/28/2023 15:48:54 09/28/19 24 09/28/2023 COMPR EHENS KI METAB OLIC PANEL chloride 107 mmol/ L 98-107 normal Not Available [address] [place], [address] 09/28/2023 15:48:54 09/28/19 24 09/28/2023 COMPR EHENS KI METAB OLIC PANEL CO2 27.2 mmol/ L 21.0-3 2.0 normal Not Available [address] [place], [address] 09/28/2023 15:48:54 09/28/19 24 09/28/2023 COMPR EHENS KI METAB OLIC PANEL anion gap 7.8 mmol/ L 3-11 normal Not Available [address] [place], [address] 09/28/2023 15:48:54 09/28/19 24 09/28/2023 COMPR EHENS KI METAB OLIC PANEL AST 32 U/L 15-37 normal Not Available [address] [place], [address] 09/28/2023 15:48:54 09/28/19 24 09/28/2023 COMPR EHENS KI METAB OLIC PANEL ALT 36 U/L 14-59 normal Not Available [address] [place], [address] 09/28/2023 15:48:54 09/28/19 24 09/28/2023 LIPID 2 cholesterol 161 mg/dL <200 Not Available [address] [place], [address] 09/28/2023 15:48:54 09/28/19 24 09/28/2023 LIPID 2 triglyceride 104 mg/dL <150 Not Available [address], [address] 09/28/2023 15:48:54 09/28/19 24 09/28/2023 LIPID 2 HDL cholesterol 62 mg/dL 40-60 Not Available Oriana hollis [address] [place], [address] 09/28/2023 15:48:54 09/28/19 24 09/28/2023 LIPID 2 calculated LDL 79 mg/dL <100 Not Available Kacie bautista [address] [place], [address] 09/28/2023 15:48:54 09/28/19 24 09/28/2023 TSH (W/RE F FT4) TSH (w/ref FT4) 1.25 uIU/m L 0.36-3 .74 normal Not Available [facility] [address] [facility] [place], [address] 09/28/2023 15:48:55 01/23/20 24 01/23/2024 hemog lobin A1C, finge rstic k hemoglobin A1C 5.9 % <5.7 Not Available [address], [place], [address], 01/23/2024 11:05:18 10/25/19 24 10/25/2023 mm mayda tasha bilazeb mammo W clarence W CAD [facility] Joshua driver [facility] [address] PACS TRANSC RIPTIO N REPORT _ Patien t Name: JORDON LEMOS MRN: Sex: : Age: [id number] Accoun t: Access ion: Admit: StayTy pe: [id number] O/P Ordere d: Order ID: Submit patti: Orderi ng Provid er: 2023 15:30 [id number] DIAMANTE VELARDE patti: Techno logist : Result ed: 2023 15:52 BMM 2023 16:07 _ Study Descri ption: MM SCREEN ING BILAT MAMMO W CLARENCE W CAD Study Reason : Screen ing COMPAR SHYAM: 2021 FINDIN GS: Mammog citlali/ Tomosy nthesi s: Masses : None seen. Kailash ectura l Distor tion: None seen. Microc alcifi ctions : No suspic ious pleomo rphic- type are seen. Skin Thicke tasha/N ipple Retrac tion: None. IMPRES WARREN: 1. No eviden ce of malign concepcion is noted. 2. Unless there is more urgent need, follow -up screen ing mammog citlali is recomm ended, as per [facility] guidel naomi. BI-RAD S Catego ry 1, negati ve mammog jonathan. Breast densit y catego ry B, scatte red fibrog landul ar densit ies. Breast densit y Catego ry C or D implie s that the patien t has dense breast tissue . Dense breast tissue can make it harder to find cancer on a mammog jonathan. Dense breast tissue is also associ ated with an increa sed risk of breast cancer . This inform ation about the result of the mammog jonathan report was provid ed to the patien t to raise their awaren ess. Use this report when you speak with the patien t about their risks for breast cancer , which includ es their family histor y. At that time, you may recomm end additi onal screen ing tests (Ultra sound or MRI) as these tests may add signif icant inform ation. A negati ve radiog raphic report should not delay biopsy if a domina nt or clinic ally suspic ious mass is presen t. Up to ten percen t of cancer s are not identi fied on mammog citlali. A negati ve report may reinfo rce clinic al impres warren. Adenos is and dense breast s may obscur e an underl osmin neopla sm. False positi ve report s averag e 6 to 10%. Patien t will receiv e a letter notify ing them of these result s. Report Digita lly Signed by Mike Martinez on 2023 04:07 PM EDT [email or web address] [facility] (Lab) [address] [place], [address], 10/28/2023 07:44:12 12/18/19 24 10/25/2023 MAMMO , mayda cordova, bilat eral [facility] [place] [address] PACS TRANSC RIPTIO N REPORT _ Patien t Name: JORDON LEMOS MRN: Sex: : Age: [id number] F [id number] Accoun t: Access ion: Admit: StayTy pe: [id number] O/P Deltae d: Order ID: Submit patti: Orderi ng Provid er: 2023 15:30 [id number] KT PROVOS T,DIAMANTE Olivas patti: Techno logist : Result ed: 2023 15:52 BMM 2023 16:07 _ Study Descri ption: MM SCREEN ING BILAT MAMMO W CLARENCE W CAD Study Reason : Screen ing COMPAR SHYAM: 2021 FINDIN GS: Mammog citlali/ Tomosy nthesi s: Masses : None seen. Kailash ectura l Distor tion: None seen. Microc alcifi ctions : No suspic ious pleomo rphic- type are seen. Skin Thicke tasha/N ipple Retrac tion: None. IMPRES WARREN: 1. No eviden ce of malign concepcion is noted. 2. Unless there is more urgent need, follow -up screen ing mammog citlali is recomm ended, as per [employer] [facility] [employer] guidel naomi. BI-RAD S Catego ry 1, negati ve mammog jonathan. Breast densit y catego ry B, scatte red fibrog landul ar densit ies. Breast densit y Catego ry C or D implie s that the patien t has dense breast tissue . Dense breast tissue can make it harder to find cancer on a mammog jonathan. Dense breast tissue is also associ ated with an increa sed risk of breast cancer . This inform ation about the result of the mammog jonathan report was provid ed to the patien t to raise their awaren ess. Use this report when you speak with the patien t about their risks for breast cancer , which includ es their family histor y. At that time, you may recomm end additi onal screen ing tests (Ultra sound or MRI) as these tests may add signif icant inform ation. A negati ve radiog raphic report should not delay biopsy if a domina nt or clinic ally suspic ious mass is presen t. Up to ten percen t of cancer s are not identi fied on mammog citlali. A negati ve report may reinfo rce clinic al impres warren. Adenos is and dense breast s may obscur e an underl osmin neopla sm. False positi ve report s averag e 6 to 10%. Patien t will receiv e a letter notify ing them of these result s. Report Digita lly Signed by Mike Martinez on 2023 04:07 PM EDT [email or web address] [facility] - Radiology [address] [place] [address], [address], 01/02/2024 11:48:13 Result Notes None recorded. Problems Name Status Onset Date Resolution Date Notes Provider Name and Address Organization Details Recorded Time Headache Active Freedom arzola [facility] 4 11:33:42 Cough Active Freedom arzola [facility] 4 11:33:28 Nicotine dependence Active 017 Kelli Seymour null, [facility]. 4 11:34:05 Low back pain Active 021 Kelilher Seymour null, [facility]. 4 11:34:01 Eczema Active 021 Kelli Seymour null, [facility]. 4 11:33:36 Psychodynamic relationship finding Active 022 Kelliher Seymour null, [facility]. 4 11:34:25 Adult health examination Active Kelli Seymour [facility], [facility] 4 11:33:21 Inactive tuberculosis Active Kelli Seleny [facility] 4 11:33:57 Idiopathic aseptic necrosis of bone Active [address] [facility], [facility] 4 11:33:55 Pre-surgery evaluation Completed 022 08/18/2021 Problem Code: Z01.818; Problem Code Type: ICD-10; Not Available [facility] 3 04:28:33 Hyperglycemia Completed 022 12/22/2021 Problem Code: R73.9; Problem Code Type: ICD-10; Not Available [facility] 3 04:28:33 Hyperlipidemia Active 022 Kelliher Seymour null, [facility]. 4 11:33:51 Prediabetes Active 022 Kelliher Seymour null, [facility]. 4 11:34:10 Menopause present Completed 022 06/16/2022 Problem Code: Z78.0; Problem Code Type: ICD-10; Not Available [facility] 3 04:28:33 Heart murmur Active 022 Kelliher Seymour null, [facility]. 4 11:33:47 Senile osteoporosis Active 022 Kelliher Seymour [facility] 4 11:34:29 Dizziness and giddiness Active 022 [facility] 4 11:33:32 Tobacco dependence caused by cigarettes Completed 017 03/28/2023 Problem Code: F17.210; Problem Code Type: ICD-10; Not Available [facility] 3 04:28:34 Counseling Completed 017 07/20/2021 Problem Code: Z71.89; Problem Code Type: ICD-10; Not Available [facility] 3 04:28:35 Screening for osteoporosis Completed 022 06/16/2022 Problem Code: Z13.820; Problem Code Type: ICD-10; Not Available [facility] 3 04:28:37 Vitamin D deficiency Active [address] [facility], [facility] 4 11:34:38 Chronic cough Active 024 Kelli Dawn [facility] 4 11:33:25 Fatigue Active 024 Kelli [facility] 4 11:33:39 Type II diabetes mellitus uncontrolled Active 024 Kelli Dawn [facility] 4 11:34:33 Poor oral hygiene Active [address] [facility], [facility] 4 11:34:07 Allergic rhinitis Active 024 YEISON MAYRA FRANCIS [address], [place], [address] , [facility] 4 11:32:56 Dyspnea Active [address], [place], [address] , [place] - [facility]. 11:54:38 Notes:*Problem Name: Unspeci fied fracture of left wrist and hand, initial encounter for closed fracture *Problem Status: inactive *Comments: 05/09/2019 - Comments only - Steven Driscoll - Wear wrist splint. Ice three times a day for 15 minutes. Referal to [facility] for wrist x-ray. *Problem Code: S62.92xA *Problem Code Type: ICD-10 *Note Date: 05/09/2019 Problem Notes None recorded. Procedures Surgical History None recorded. Imaging Results Imaging Date Name Status LastModified by Organiz ation Details LastModified Time 10/25/2023 mm screening bilat mammo W clarence W CAD completed [email or web address] [facility] (Lab) [address] [place], [address], 10/28/2023 07:44:12 10/25/2023 MAMMO, screening, bilateral completed [email or web address] [facility] Radiology [address] [place], [address], 01/02/2024 11:48:13 Procedure Notes None recorded. Medical Equipment None Reported. Allergies No known drug allergies Medications Name Sig Start Date Stop Date Status Note LastModified by Organization Details LastModified Time metformin 500 mg tablet TAKE 1 TABLET BY MOUTH TWICE DAILY active Not Available Not Available No t Available atorvastatin 20 mg tablet TAKE 1 TABLET BY MOUTH EVERY NIGHT active Not Available Not Available No t Available alendronate 70 mg tablet Take 1 tablet by mouth once a week on empty stomach w/ full glass water. Stay upright for 30 min after. active Not Available Not Available No t Available triamcinolone acetonide 0.1 % topical cream Apply 1 a small amount to affected area twice a day until symptoms resolve 2023 active Not Available Not Available Not Avai lable montelukast 10 mg tablet Take 1 tablet every day by oral route. 2023 active Not Available Not Available Not Avai lable albuterol sulfate HFA 90 mcg/actuation aerosol inhaler INHALE 2 PUFFS BY MOUTH EVERY 4 HOURS active Not Available Not Available No t Available Vitals Date Recorded Body height Body mass index (BMI) Body weight Body temperature Oxygen saturation Oxygen saturation in Arterial blood by Pulse oximetry Heart rate Systolic blood pressure Diastolic blood pressure Provider Name and Address Organization Details Last Updated DateTime 4 152.4 cm 24.3 kg/m2 63705.1 7 g 97.3 [degF] 96 % 96 % 80 /min 102 mm[Hg] 76 mm[Hg] LUZ FALCON RN [facility] 4 10:20:53 Date Recorded Body height Body mass index (BMI) Body weight Body temperature Oxygen saturation Oxygen saturation in Arterial blood by Pulse oximetry Heart rate Systolic blood pressure Diastolic blood pressure Provider Name and Address Organization Details Last Updated DateTime 4 152.4 cm 24.2 kg/m2 71220.4 5 g 97.6 [degF] 98 % 98 % 103 /min 112 mm[Hg] 70 mm[Hg] DINA BACA RN [facility] 4 11:02:20 Date Recorded Body height Body mass index (BMI) Body weight Body temperature Oxygen saturation Oxygen saturation in Arterial blood by Pulse oximetry Heart rate Systolic blood pressure Diastolic blood pressure Provider Name and Address Organization Details Last Updated DateTime 4 152.4 cm 22.5 kg/m2 82952.1 2 g 97 [degF] 95 % 95 % 78 /min 110 mm[Hg] 72 mm[Hg] RENATA DORADO MA [facility] 4 11:03:02 Social History Question Answer Notes LastModified by Organizat ion Details LastModified Time Tobacco Smoking Status Former Smoker LUZ FALCON RN null, [facility] 09/28/2023 10:15:23 When Did You Quit Smoking? 1-5yearssinc elastcigaret te [id number] Information not available 09/28/2023 Sex: Female Functional Status None recorded. Mental Status None recorded. Family History Relationship Description Onset Age of this Age Resolved Age Notes Notes:*Problem: sister - [place] on [place] Father [place] Medical History No medical history recorded. Gynecological HistoryNo gynecological history recorded. Obstetrics History GPAL:G 0 P 0 0 0 0 Immunizations Vaccine Type Date Status Provider Name and Address Organization Details Recorded Time Tdap 09/09/2015 completed Not Available [facility] 05:53:08 Influenza, split virus, quadrivalent, PF 06/10/2021 completed Not Available [facility] 05/11/2023 05:53:09 Influenza, high-dose, quadrivalent, PF 04/07/2022 completed Not Available [facility] 05/11/2023 05:53:10 COVID-19, mRNA, LNP-S, PF, 100 mcg/0.5mL dose or 50 mcg/0.25mL dose 11/02/2020 completed Not Available [facility] 05/11/2023 05:53:10 COVID-19, mRNA, LNP-S, PF, 100 mcg/0.5mL dose or 50 mcg/0.25mL dose 11/30/2020 completed Not Available [facility] 05/11/2023 05:53:10 COVID-19, mRNA, LNP-S, PF, 100 mcg/0.5mL dose or 50 mcg/0.25mL dose 12/15/2021 completed Not Available [facility] 05/11/2023 05:53:10 COVID-19, mRNA, LNP-S, PF, 100 mcg/0.5mL dose or 50 mcg/0.25mL dose 06/10/2021 completed Not Available [facility] 05/11/2023 05:53:11 COVID-19, mRNA, LNP-S, bivalent, PF, 30 mcg/0.3 mL dose 04/07/2022 completed Not Available [facility] 05/11/20 05:53:11 pneumococcal polysaccharide PPV23 12/15/2021 completed Not Available [facility] 2022 05:53:11 influenza, unspecified formulation 09/09/2015 completed Not Available [facility] 05/11/2023 05:53:11 Influenza, high-dose, quadrivalent, PF 04/10/2023 completed Not Available [facility] 07/13/2023 05:33:06 Pneumococcal conjugate PCV20, polysaccharide QAB136 conjugate, adjuvant, PF 04/10/2023 completed Not Available [facility] 07/13/2023 05:33:06 Past Encounters Encounter ID Performer Location Encounter Start Date Encounter Closed Date Diagnosis/Indication Diagnosis SNOMED-CT Code [id number] [address] [address] 09/28/2023 09:58:38 09/28/2023 11:08:07 Screening mammography 34514298 Fatigue 46620694 Chronic cough 95254701 Poor oral hygiene 830146 [id number] [address] 10/17/2023 10:45:04 10/17/2023 11:33:00 Chronic cough 44267522 Type II di abetes mellitus uncontrolled 888032546 [id number] [address] [address] 01/23/2024 10:47:05 01/23/2024 11:58:00 Prediabetes 506032591 Allergic rhinitis 538619 04 Eczema 72556587 Fatigue 62922883 Dyspnea 091324043 Health Concerns Section Related Observation LastModified by Organization Detai ls LastModified Time None Recorded Concern Status LastModified by Organization Details LastModified Time None Recorded Advance Directives Directive None Recorded Payers Encounter Date Sequence Insurance Name Policy Number Policy Vargas Covered Member ID Vargas Member ID Guarantor Name 09/28/2023 1 [employer] (MEDICARE REPLACEMENT/A DVANTAGE - PPO) [id number] Radha T Le [id number] Radha T Le 10/17/2023 1 [employer] (MEDICARE REPLACEMENT/A DVANTAGE - PPO) [id number] Radha T Le [id number] Radha T Le 01/23/2024 1 [employer] (MEDICARE REPLACEMENT/A DVANTAGE - PPO) [id number] Radha T Le [id number] Radha T Le Notes Date Note Type Note Provider Name and Address Organization Details Recorded Time 09/28/2023 text/html HPI Notes: 67-year-old female presents to clinic with complaints of chronic cough which has been increasingly bothersome to her. Online sheet metal duct installer being used to conduct today's visit due to language barrier. She is a patient of [facility]. Had a Medicare wellness exam 6 months ago. Patient quit smoking last year. Her is a heavy smoker and especially during the winter months, she is exposed to secondhand smoke. [address], [place], [address], [facility]. 10/14/2023 11:48:29 10/17/2023 text/html HPI Notes: 67-year-old female presents to clinic today to follow-up from a visit last month for a cough and to review recent lab work. Visit is facilitated with a Cambodian certified vehicle fire investigator # [id number]. Patient reports her cough is somewhat better. It does get aggravated when she is around secondhand smoke. She also notices increased production of phlegm when she lays down at night to sleep. She picked up her albuterol inhaler from the pharmacy but has not used it. She has been waiting for her neighbor to show her how to appropriately use it. Denies any fever, chills, chest pain, shortness of breath, N/V/D. [address], [place], [address], [facility] 10/17/2023 11:42:37 01/23/2024 text/html HPI Notes: The patient presents with concerns about tiredness and shortness of breath. Visit conducted via sheet metal duct installer # [id number] Prediabetes: The patient's A1c has come down to 5.9 since starting metformin in September. The patient has lost 9 pounds during this period. The metformin is controlling the blood sugar levels, but they are still slightly above normal. Tiredness: The patient has been feeling tired lately and is concerned about the possible causes. She has been following a vegan diet and taking metformin for prediabetes. Shortness of Breath: The patient experiences occasional shortness of breath when walking long distances. Her smokes in the house, which may be contributing to the issue. No relevant family history was discussed during the visit. SH The patient's smokes in the house, which may be contributing to her shortness of breath. The patient follows a vegan diet. - Limited access to clean air due to 's smoking in the house [address], [place], [address], [facility] 01/23/2024 11:57:03 OBGyn Episode No OBEpisode recorded.
[2024-01-23 14:52] LABS: HCT 40.3 % (36.0-46.0); HGB 13.4 g/dL (11.2-15.7); MCH 30.7 pg (27.0-33.0); MCHC 33.3 % (32.0-36.0); MCV 92 fL (80-95); Platelet Count 287 10^3/uL (130-400); RBC 4.36 10^6/uL (3.93-5.22); RDW 12.3 % (11.7-14.6); RDW-SD 42.1 fL; WBC 9.82 10^3/uL (4.4-10.8)
== END 2024-01-23 14:31 | disposition home or self-care (01) ==
LOC: NCHCN 14:30
PROVIDERS: Visit Provider Family Medicine
DX: R53.83 Other fatigue (principal)
CPT/HCPCS: 85027

== ENCOUNTER 2024-04-30 13:30 | Outpatient (REF) | payer OTHER, SELFPAY ==
[2024-04-30 17:58] LABS: COMMENT (LAB VIEW ONLY) 52.96 mg/dL
== END 2024-04-30 13:31 | disposition home or self-care (01) ==
LOC: NCHCN 13:30
PROVIDERS: Visit Provider Family Medicine
DX: R73.03 Prediabetes (principal)
CPT/HCPCS: 82043; 82570

== ENCOUNTER 2024-07-30 19:43 | Outpatient (REF) | payer MEDICARE, SELFPAY ==
--- OUTSIDE RECORDS SUMMARY | 2024-07-30 19:57 | XMS_ITS ---
Author Organization Unknown Address [address] [place] [address] [phone] Phone Care Team Providers Care Gripper Installer Name Role Phone NIMCO BARNES Attending Unavailable Social History Type Status Start Date End Date Code Code Syst em Smoking History Never smoker (Never Smoked) 741763635 SNOMED CT Sex Female Hospital Discharge Instructions [...] 1294 52 Active FDA Left BRYON 08/11 [id number] 2 10/27/2027 POLARS TEM 0738981 0 Metallic femoral head prosthesis 0103 5960 1047 4230 1728 1028 1018 KM26 320 Active FDA Left BRYON 08/11 [id number] 20 04/28/2028 OXINIU M 7186997 8 Non-constr ained polyethyle ne acetabular liner 0103 5960 1059 8790 1731 0918 1021 JM13 232 Active FDA Left BRYON 08/11 [id number] 32 03/19/2031 R3 9407713 8 Acetabular shell 0103 5960 1059 7571 1731 1011 1021 KW04 022 Active FDA Left BRYON 08/11 [id number] 22 04/11/2031 R3 ACETAB ULAR 1357678 8 Acetabulum prosthesis hole plug 0103 5960 1019 7634 1731 0803 1021 HM04 644 Active FDA Left BRYON 08/11 [id number] 44 02/01/2031 REFLEC TION 0165953 0 Allergies and Adverse Reactions Allergy Substance Reaction Severity Start Date Concern Status Co de Code System No Known Drug Allergies Active 417870839 SNOMED-CT Plan of Treatment MM SCREEN BILAT 10/25/2023 MM SCREEN BILAT 01/19/2022 BONE DENSITY DEXA SPINE & HIP 2 X-RAY 08/03/2021 PRE-OP TESTING 08/01/2021 PRE-OP COVID-19 TESTING 08/09/2021 Encounters Encounter Diagnosis Start Date Code Code Sys tem Avascular necrosis of bone of hip 07/05/2021 4884949 02 SNOMED-CT Personal Care Team Section Performer Name Performer Role Active Date Inactive Da te
--- OUTSIDE RECORDS SUMMARY | 2024-07-30 19:57 | XMS_ITS ---
Author Organization Unknown Address [address] [place] [address] [phone] Phone Care Team Providers Care Reliability Technician Name Role Phone JULISSA LEONALENA Registered Nurse [...] Comparison is made with outside exams from [facility] dated 21 June 2021. There is [...] TERELL GREENWOOD MD Transcribed by: ERIS 06/23/21/09:12 [id number] Electronically Reviewed and Signed By: TERELL GREENWOOD MD 06/27/21 08:35 Copy for: 185 HEALTH INFORMATION MGMT DISCHARGED Social History Type Status Start Date End Date Code Code Syst em Smoking History Never smoker (Never Smoked) 186813611 SNOMED CT Sex Female Vital Signs Vital Sign Value Unit [place] Value [place] Unit Date/Time Recent/Initial? Code Code System Body Mass Index 22.60 kg/m2 06/22/2021 13:42 Initial 01031 -5 LOINC Systolic Blood Pressure 136 mm[Hg] 06/22/2021 13:42 Initial 8480- 6 LOINC Diastolic Blood Pressure 82 mm[Hg] 06/22/2021 13:42 Initial 8462- 4 LOINC Body Surface Area 1.54 m2 06/22/2021 13:42 Initial 3140- 1 LOINC Height 156.006 8 cm 61.42 in 06/22/2021 13:42 Initial 8302- 2 LOINC O2 Saturation 100 % 2020 13:42 Initial 37585 -5 LOINC Pulse 78.0 /min 06/22/2021 13:42 Initial 8867- 4 LOINC Respiration 16 /min 06/22/20 13:42 Initial 9279- 1 LOINC Temperature 36.3 Catherine 97.3 F 06/22/20 13:42 Initial 8310- 5 LOINC Weight 55.00 kg 121.25 lbs 06/22/2021 13:42 Initial 54740 -7 [facility] Hospital Discharge Instructions Should you have any [...] 1294 52 Active FDA Left BRYON 08/11 [id number] 2 10/27/2027 POLARS TEM 8189134 0 Metallic femoral head prosthesis 0103 5960 1047 4230 1728 1028 1018 KM26 320 Active FDA Left BRYON 08/11 [id number] 20 04/28/2028 OXINIU M 3170119 8 Non-constr ained polyethyle ne acetabular liner 0103 5960 1059 8790 1731 0918 1021 JM13 232 Active FDA Left BRYON 08/11 96QR936 32 03/19/2031 R3 3930369 8 Acetabular shell 0103 5960 1059 7571 1731 1011 1021 KW04 022 Active FDA Left BRYON 08/11 [id number] 22 04/11/2031 R3 ACETAB ULAR 8217787 8 Acetabulum prosthesis hole plug 0103 5960 1019 7634 1731 0803 1021 04 644 Active FDA Left BRYON 08/11 24AJ175 44 02/01/2031 REFLEC TION 3887353 0 Allergies and Adverse Reactions Allergy Substance Reaction Severity Start Date Concern Status Co de Code System No Known Drug Allergies Active 581600121 SNOMED-CT Plan of Treatment MM SCREEN BILAT 10/25/2023 MM SCREEN BILAT 01/19/2022 BONE DENSITY DEXA SPINE & HIP 2 X-RAY 08/03/2021 PRE-OP TESTING 08/01/2021 PRE-OP COVID-19 TESTING 08/09/2021 Encounters Encounter Diagnosis Start Date Code Code Sys tem Closed fracture of head of left femur 06/22/2021 159 [id number] SNOMED-CT Personal Care Team Section Performer Name Performer Role Active Date Inactive Da juan
--- OUTSIDE RECORDS SUMMARY | 2024-07-30 19:57 | XMS_ITS ---
Author Organization Unknown Address [address] [place] [address] [phone] Phone Care Team Providers Care Radiological Metallurgist Name Role Phone NIMCO BARNES Attending Unavailable CARTER Castanon Primary Unavailable Results [facility] - [place] Date/Time: 08/09/2021 10:49 [facility] ID: [id number] [address] [place], [place], [id number] LOINC: 92857-1 Test Value Unit Reference Range Code Code System Flag Tier- PRE-OP 70911-3 LOINC SARS COV2 RNA: NEGATIVE REFERENCE RANGE: NEGAT 19377-5 L OINC Social History Type Status Start Date End Date Code Code Syst em Smoking History Never smoker (Never Smoked) 203775366 SNOMED CT Sex Female Hospital Discharge Instructions [...] 1294 52 Active FDA Left BRYON 08/11 [id number] 2 10/27/2027 POLARS TEM 5396540 0 Metallic femoral head prosthesis 0103 5960 1047 4230 1728 1028 1018 KM26 320 Active FDA Left BRYON 08/11KM263 20 04/28/2028 TAYLOR Castanon 0903904 8 Non-constr ained polyethyle ne acetabular liner 0103 5960 1059 8790 1731 0918 1021 JM13 232 Active FDA Left BRYON 08/11 08ED603 32 03/19/2031 R3 7886365 8 Acetabular shell 0103 5960 1059 7571 1731 1011 1021 KW04 022 Active FDA Left BRYON 08/11 [id number] 22 04/11/2031 R3 ACETAB ULAR 8592415 8 Acetabulum prosthesis hole plug 0103 5960 1019 7634 1731 0803 1021 HM04 644 Active FDA Left BRYON 08/11 60FQ841 44 02/01/2031 REFLEC TION 3012724 0 Allergies and Adverse Reactions Allergy Substance Reaction Severity Start Date Concern Status Co de Code System No Known Drug Allergies Active 953207586 SNOMED-CT Plan of Treatment MM SCREEN BILAT 10/25/2023 MM SCREEN BILAT 01/19/2022 BONE DENSITY DEXA SPINE & HIP 2 X-RAY 08/03/2021 PRE-OP TESTING 08/01/2021 PRE-OP COVID-19 TESTING 08/09/2021 Encounters Encounter Diagnosis Start Date Code Code Sys tem Exposure to SARS-CoV-2 08/09/2021 137488675 [facility] Personal Care Team Section Performer Name Performer Role Active Date Inactive Da juan
--- OUTSIDE RECORDS SUMMARY | 2024-07-30 19:58 | XMS_ITS ---
Author Organization Unknown Address [address] [place] [address] [phone] Phone Care Team Providers Care Upholstery Technician Name Role Phone NIMCO BARNES Attending Unavailable ENZO Amaya CIRCUIT RIDER Unavailable GABRIELLA Chow Nurse Practitioner Unavailable CARTER [...] by: TERRA 08/11/21/10:52 D August 9:21:04 AM [id number] Electronically Reviewed and Signed By: JAMAAL CLARKE MD 08/11/21 14:45 Copy for: 185 HEALTH INFORMATION MGMT Social History Type Status Start Date End Date Code Code Syst em Smoking History Never smoker (Never Smoked) 636078433 SNOMED CT Sex Female Vital Signs Vital Sign Value Unit [place] Value [place] Unit Date/Time Recent/Initial? Code Code System Body Mass Index 23.44 kg/m2 08/10/2021 11:58 Initial 41167 -5 LOINC Systolic Blood Pressure 110 mm[Hg] 08/11/2021 12:01 Initial 8480- 6 LOINC Diastolic Blood Pressure 75 mm[Hg] 08/11/2021 12:01 Initial 8462- 4 LOINC Body Surface Area 1.52 m2 08/10/2021 11:58 Initial 3140- 1 LOINC Height 152.400 0 cm 60.00 in 08/10/2021 11:58 Initial 8302- 2 LOINC O2 Saturation 99 % 2021 12:01 Initial 85497 -5 LOINC Pulse 67.0 /min 08/11/2021 12:01 Initial 8867- 4 [facility] Respiration 13 /min 08/11/19 12:01 Initial 9279- 1 INC Temperature 36.0 Catherine 96.8 F 08/11/19 12:01 Initial 8310- 5 [facility] Weight 54.43 kg 120.00 lbs 08/10/2021 11:58 Initial 30203 -7 [facility] Hospital Discharge Instructions Should you have any questions prior to discharge, please contact a member of your healthcare team. If you have left the hospital and have any questions, please contact your primary care physician. Reason For Referral No Data Found Procedures Procedure Name Date Status Code Code Syste m Arthroplasty, Acetabular/Pro ximal Femoral Prosthetic Replacement, w/wo Autograft/Allograft 08/11/2021 completed 71663 CPT Anesthesia, Open Proc Involv ing Hip Joint; Total Hip Arthroplasty 08/11/2021 completed 14947 CPT Implants Implanted LIDA Status Assigning Authority Procedure Date Lot Number Serial Number Manufacturing Date Expiration Date Distinct ID Code Brand Name Model Number Coated hip femur prosthesis , modular 0107 6119 9610 3373 1728 0427 10C2 1294 52 Active FDA Left BRYON 08/11 [id number] 2 10/27/2027 POLARS TEM 6128256 0 Metallic femoral head prosthesis 0103 5960 1047 4230 1728 1028 1018 KM26 320 Active FDA Left BRYON 08/11 [id number] 20 04/28/2028 OXINIU M 3908141 8 Non-constr ained polyethyle ne acetabular liner 0103 5960 1059 8790 1731 0918 1021 JM13 232 Active FDA Left BRYON 08/11 67JF718 32 03/19/2031 R3 5692745 8 Acetabular shell 0103 5960 1059 7571 1731 1011 1021 KW04 022 Active FDA Left BRYON 08/11 [id number] 22 04/11/2031 R3 ACETAB ULAR 3587037 8 Acetabulum prosthesis hole plug 0103 5960 1019 7634 1731 0803 1021 HM04 644 Active FDA Left BRYON 08/11 [id number] 44 02/01/2031 REFLEC TION 6322478 0 Allergies and Adverse Reactions Allergy Substance Reaction Severity Start Date Concern Status Co de Code System No Known Drug Allergies Active 349626930 SNOMED-CT Plan of Treatment MM SCREEN BILAT 10/25/2023 MM SCREEN BILAT 01/19/2022 BONE DENSITY DEXA SPINE & HIP 2 X-RAY 08/03/2021 PRE-OP TESTING 08/01/2021 PRE-OP COVID-19 TESTING 08/09/2021 Encounters Encounter Diagnosis Start Date Code Code Sys tem Other osteonecrosis, left femur 08/11/2021 SNOMED-CT Personal Care Team Section Performer Name Performer Role Active Date Inactive Da te
--- OUTSIDE RECORDS SUMMARY | 2024-07-30 19:58 | XMS_ITS ---
Author Organization Unknown Address [address] [place] [address] [phone] Phone Care Team Providers Care Infusion Nurse Name Role Phone NIMCO BARNES Attending Unavailable [...] D Sunday, August 03, 2021 1:30:47 PM [id number] Electronically Reviewed and Signed By: JAMAAL CLARKE MD 08/04/21 12:46 Copy for: 185 HEALTH INFORMATION MGMT Social History Type Status Start Date End Date Code Code Syst em Smoking History Never smoker (Never Smoked) 009240911 SNOMED CT Sex Female Hospital Discharge Instructions [...] 1294 52 Active FDA Left BRYON 08/11 [id number] 2 10/27/2027 POLARS TEM 7603309 0 Metallic femoral head prosthesis 0103 5960 1047 4230 1728 1028 1018 KM26 320 Active FDA Left BRYON 08/11 [id number] 20 04/28/2028 OXINIU M 1304572 8 Non-constr ained polyethyle ne acetabular liner 0103 5960 1059 8790 1731 0918 1021 JM13 232 Active FDA Left BRYON 08/11 62JI952 32 03/19/2031 R3 2686944 8 Acetabular shell 0103 5960 1059 7571 1731 1011 1021 KW04 022 Active FDA Left BRYON 08/11 [id number] 22 04/11/2031 R3 ACETAB ULAR 9621421 8 Acetabulum prosthesis hole plug 0103 5960 1019 7634 1731 0803 1021 HM04 644 Active FDA Left BRYON 08/11 43ZI515 44 02/01/2031 REFLEC TION 7908795 0 Allergies and Adverse Reactions Allergy Substance Reaction Severity Start Date Concern Status Co de Code System No Known Drug Allergies Active 388556734 SNOMED-CT Plan of Treatment MM SCREEN BILAT 10/25/2023 MM SCREEN BILAT 01/19/2022 BONE DENSITY DEXA SPINE & HIP 2 X-RAY 08/03/2021 PRE-OP TESTING 08/01/2021 PRE-OP COVID-19 TESTING 08/09/2021 Encounters Encounter Diagnosis Start Date Code Code Sys tem Abnormal findings on diagnostic imaging of limbs 08/03 078080882 [place] [facility]-CT Personal Care Team Section Performer Name Performer Role Active Date Inactive Da juan
--- OUTSIDE RECORDS SUMMARY | 2024-07-30 19:59 | XMS_ITS ---
Author Organization Unknown Address [address] [place] [address] [phone] Phone Care Team Providers Care Bronze Plater Name Role Phone SAY Amaya Attending Unavailable CARTER Castanon Primary Unavailable Social History Type Status Start Date End Date Code Code Syst em Smoking History Never smoker (Never Smoked) 323710164 SNOMED CT Sex Female Hospital Discharge Instructions [...] 1294 52 Active FDA Left BRYON 08/11 [id number] 2 10/27/2027 POLARS TEM 5810409 0 Metallic femoral head prosthesis 0103 5960 1047 4230 1728 1028 1018 KM26 320 Active FDA Left BRYON 08/11 94CP010 20 04/28/2028 OXINIU M 5093832 8 Non-constr ained polyethyle ne acetabular liner 0103 5960 1059 8790 1731 0918 1021 JM13 232 Active FDA Left BRYON 08/11 87GO124 32 03/19/2031 R3 0569111 8 Acetabular shell 0103 5960 1059 7571 1731 1011 1021 KW04 022 Active FDA Left BRYON 08/11 [id number] 22 04/11/2031 R3 ACETAB ULAR 0767588 8 Acetabulum prosthesis hole plug 0103 5960 1019 7634 1731 0803 1021 HM04 644 Active FDA Left BRYON 08/11 [id number] 44 02/01/2031 REFLEC TION 3437569 0 Allergies and Adverse Reactions Allergy Substance Reaction Severity Start Date Concern Status Co de Code System No Known Drug Allergies Active 411874386 SNOMED-CT Plan of Treatment MM SCREEN BILAT 10/25/2023 MM SCREEN BILAT 01/19/2022 BONE DENSITY DEXA SPINE & HIP 2 X-RAY 08/03/2021 PRE-OP TESTING 08/01/2021 PRE-OP COVID-19 TESTING 08/09/2021 Encounters Encounter Diagnosis Start Date Code Code Sys tem Cardiac murmur, unspecified 07/04/2022 SNOMED-CT Personal Care Team Section Performer Name Performer Role Active Date Inactive Da te
--- OUTSIDE RECORDS SUMMARY | 2024-07-30 19:59 | XMS_ITS ---
Author Organization Unknown Address [address] [place] [address] [phone] Phone Care Team Providers Care Construction Flagger Name Role Phone CARTER Castanon Attending Unavailable [...] D , January 19, 2022 2:02:35 PM [id number] Electronically Reviewed and Signed By: TERELL GREENWOOD MD 02/05/22 12:15 Copy for: CARTER Castanon via fax Copy for: 185 HEALTH INFORMATION MGMT MM SCREENING BILAT MAMMO W T DPAHNIE W CAD - Completed: 01/19/2022 13:43 LOINC: [...] D , January 19, 2022 2:50:02 PM [id number] Electronically Reviewed and Signed By: TERELL GREENWOOD MD 02/05/22 12:15 TECHNOLOGIST: RT Hilary (R) (M) Copy for: [place] [facility] Castanon via fax Copy for: 185 HEALTH INFORMATION MGMT Social History Type Status Start Date End Date Code Code Syst em Smoking History Never smoker (Never Smoked) 910206183 SNOMED CT Sex Female Hospital Discharge Instructions [...] 1294 52 Active FDA Left BRYON 08/11 [id number] 2 10/27/2027 POLARS TEM 7151066 0 Metallic femoral head prosthesis 0103 5960 1047 4230 1728 1028 1018 KM26 320 Active FDA Left BRYON 08/11 [id number] 20 04/28/2028 OXINIU M 8719846 8 Non-constr ained polyethyle ne acetabular liner 0103 5960 1059 8790 1731 0918 1021 JM13 232 Active FDA Left BRYON 08/11 47VO531 32 03/19/2031 R3 4302352 8 Acetabular shell 0103 5960 1059 7571 1731 1011 1021 KW04 022 Active FDA Left BRYON 08/11 [id number] 22 04/11/2031 R3 ACETAB ULAR 9440297 8 Acetabulum prosthesis hole plug 0103 5960 1019 7634 1731 0803 1021 HM04 644 Active FDA Left BRYON 08/11 [id number] 44 02/01/2031 REFLEC TION 8315003 0 Allergies and Adverse Reactions Allergy Substance Reaction Severity Start Date Concern Status Co de Code System No Known Drug Allergies Active 597436822 SNOMED-CT Plan of Treatment MM SCREEN BILAT [...]
--- OUTSIDE RECORDS SUMMARY | 2024-07-30 19:59 | XMS_ITS ---
Author Organization Unknown Address [address] [place] [phone] Phone Care Team Providers Care Lapel Padder Blindstitch Name Role Phone NIMCO BARNES Attending Unavailable CARTER Castanon Primary Unavailable Results PT PROTHROMBIN TIME* - Colle ct Date/Time: 08/01/2021 16:05 [facility] ID: [id number] [address] [place] [address], [phone] LOINC: 5902-2 Test Value Unit Reference Range Code Code System Flag PROTIME 10.1 seconds L=9.3 H=11.4 5902-2 LOINC INR 0.99 L=2.00 H=3.00 54707-0 LOINC L TYPE AND SCREEN* - Collect D ate/Time: 08/01/2021 16:05 [facility] ID: [id number] [address] [place] [address], [id number] LOINC: Test Value Unit Reference Range Code Code System Flag Blood Group B 883-9 LOINC Rh (D) POSITIVE 53616-0 LOINC Antibody Screen NEGATIVE 1005-8 LOINC NICOTINE AND METABOLITE(COTI NINE) URINE - Collect Date/Time: 08/01/2021 16:05 [facility] ID: [id number] [address] [place] [address], [id number] LOINC: 3854-7 Test Value Unit Reference Range Code Code System Flag Nicotine 30 <5.0 3854-7 LOINC H Cotinine 46 ng/mL <5.0 66549-1 LOINC H Nornicotine See Below <2.0 26953-6 LOINC Anabasine < 2.0 ng/mL <2.0 65522-8 LOINC MRSA/MSSA NASAL COMPLETE BY PCR* - Collect Date/Time: 08/01/2021 16:05 [facility] ID: [id number] - [id number] [address] [place], [place], [id number] LOINC: Test Value Unit Reference Range Code Code System Flag MRSA NEGATIVE Normal: Negative 82715-5 LOINC MSSA NEGATIVE Normal: Negative CBC W/ DIFFERENTIAL* - Colle ct Date/Time: 08/01/2021 16:05 [facility] ID: [id number] - [id number] [address] [place], [place], [address] LOINC: 14973-7 Test Value Unit Reference Range Code Code System Flag WBC 9.85 th/cmm L=5.00 H=10.00 6690-2 LOINC NEUT % 50.4 % L=40.0 H=80.0 LYMPH % 41.4 % L=10.0 H=50.0 MONO % 6.6 % L=2.0 H=12.0 10526-2 LOINC EOS % 0.8 % L=0.0 H=8.0 BASO % 0.6 % L=0.0 H=3.0 IG % 0.2 % L=0.0 H=1.1 2514-8 LOINC NRBC % 0.0 % L=0.0 H=0.0 69414-2 LOINC NEUT abs count 5.0 th/cmm L=1.6 H=8.4 751-8 LOINC LYMPH abs count 4.1 th/cmm L=1.5 H=4.0 731-0 LOINC H MONO abs count 0.7 th/cmm L=0.2 H=1.0 742-7 LOINC EOS abs count 0.1 th/cmm L=0.0 H=0.5 711-2 LOINC BASO abs count 0.1 th/cmm L=0.0 H=0.2 704-7 LOINC IG abs count 0.0 th/cmm L=0.0 H=0.1 88717-2 LOINC NRBC abs count 0.0 mil/cmm L=0.0 H=0.0 26272-2 LOINC RBC 4.13 mil/cmm L=3.90 H=5.40 789-8 [...] PANEL (BMP) - Collect Date/Time: 08/01/2021 16:05 [facility] ID: [id number] - [id number] [address] [place], [place], [address] LOINC: 08229-6 Test Value Unit Reference Range Code Code [...] H=34 2028-9 LOINC ANION GAP 9.0 mmol/L 96303-0 LOINC CALCIUM SERUM 8.9 mg/dL L=8.2 H=10.2 16327-9 LOINC AGE 65 years eGFR (non-Afr.Amer.) 94 mL/min 79840-7 LOINC eGFR (Afr-Bahraini) 114 mL/min 86639-9 LOINC Social History Type Status Start Date End Date Code Code Syst em Smoking History Never smoker (Never Smoked) 984999426 SNOMED CT Sex Female Hospital Discharge Instructions [...] 1294 52 Active FDA Left BRYON 08/11 [id number] 2 10/27/2027 POLARS TEM 1866142 0 Metallic femoral head prosthesis 0103 5960 1047 4230 1728 1028 1018 KM26 320 Active FDA Left BRYON 08/11 47HF477 20 04/28/2028 OXINIU M 4628196 8 Non-constr ained polyethyle ne acetabular liner 0103 5960 1059 8790 1731 0918 1021 JM13 232 Active FDA Left BRYON 08/11 14UB622 32 03/19/2031 R3 3128495 8 Acetabular shell 0103 5960 1059 7571 1731 1011 1021 KW04 022 Active FDA Left BRYON 08/11 92KE572 22 04/11/2031 R3 ACETAB ULAR 9635318 8 Acetabulum prosthesis hole plug 0103 5960 1019 7634 1731 0803 1021 HM04 644 Active FDA Left BRYON 08/11 38MR357 44 02/01/2031 REFLEC TION 8857792 0 Allergies and Adverse Reactions Allergy Substance Reaction Severity Start Date Concern Status Co de Code System No Known Drug Allergies Active 519468103 SNOMED-CT Plan of Treatment MM SCREEN BILAT [...]
--- OUTSIDE RECORDS SUMMARY | 2024-07-30 19:59 | XMS_ITS ---
Author Organization Unknown Address [address] [place] [phone] Phone Care Team Providers Care Employment Evaluator/Case Manager Name Role Phone NIMCO BARNES Attending Unavailable CARTER Castanon Primary Unavailable Results XR HIP LT 2-3V* - Completed: 09/13/2021 11:50 LOINC: PELVIS/LEFT HIP, 2 VIEWS: Compared to 08/11/2021. Two views reveal satisfactory position and alignment of the components of the recently placed prosthesis.??No fracture nor loosening evident. Dictated by: SANDY CARPENTER MD Transcribed by: ERIS 09/14/21/13:53 [id number] Electronically Reviewed and Signed By: EVA CARPENTER MD 09/16/21 10:24 Copy for: 185 [facility] IN[facility] MGMT Social History Type Status Start Date End Date Code Code Syst em Smoking History Never smoker (Never Smoked) 042053980 SNOMED CT Sex Female Hospital Discharge Instructions [...] 1294 52 Active FDA Left BRYON 08/11 [id number] 2 10/27/2027 POLARS TEM 1857855 0 Metallic femoral head prosthesis 0103 5960 1047 4230 1728 1028 1018 KM26 320 Active FDA Left BRYON 08/11 15TC716 20 04/28/2028 TAYLOR M 1020477 8 Non-constr ained polyethyle ne acetabular liner 0103 5960 1059 8790 1731 0918 1021 JM13 232 Active FDA Left BRYON 08/11 23DV173 32 03/19/2031 R3 9877023 8 Acetabular shell 0103 5960 1059 7571 1731 1011 1021 KW04 022 Active FDA Left BRYON 08/11 30UJ029 22 04/11/2031 R3 ACETAB ULAR 7786144 8 Acetabulum prosthesis hole plug 0103 5960 1019 7634 1731 0803 1021 HM04 644 Active FDA Left BRYON 08/11 34LJ787 44 02/01/2031 REFLEC TION 8491116 0 Allergies and Adverse Reactions Allergy Substance Reaction Severity Start Date Concern Status Co de Code System No Known Drug Allergies Active 689631345 SNOMED-CT Plan of Treatment MM SCREEN BILAT 10/25/2023 MM SCREEN BILAT 01/19/2022 BONE DENSITY DEXA SPINE & HIP X-RAY 08/03/2021 PRE-OP TESTING 08/01/2021 PRE-OP COVID-19 TESTING 08/09/2021 Encounters Encounter Diagnosis Start Date Code Code Sys tem Hip joint prosthesis present 09/13/2021 302412542 SNOMED-CT Personal Care Team Section Performer Name Performer Role Active Date Inactive [facility]
--- OUTSIDE RECORDS SUMMARY | 2024-07-30 20:00 | XMS_ITS | Data Portability ---
Author Organization [facility], [facility] [place] [address] Assessment Encounter Date Assessment Date Assessment LastModified by Organization Details LastModified Time 10/17/2023 10/17/2023 The total time devoted to today's encounter, including both the xogd-rh-dqtn time with the patient and/or family/caregiver and dnb-fbbs-vz-face time I personally spent is 45 minutes. [place] online expert medical writer #[phone] utilized for appointment today. Recent labs reviewed with patient. Questions answered. LIfestyle modifications discussed including low fat, low sodium diet, exercise regimen, stress reduction and good sleep hygiene. [email or web address] Not available 10/17/2023 11:40:29 01/23/2024 01/23/2024 The total time devoted to today's encounter, including both the obml-mp-qvqi time with the patient and/or family/caregiver and ivv-rbly-zy-face time I personally spent is 50 minutes. [...] which could be affecting her respiratory health. 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 The total time devoted to today's encounter, including both the joeu-or-ashx time with the patient and/or family/caregiver and ryg-ihhy-ga-face time I personally spent is 20 minutes in visit, 5 minutes prep, 5 minutes charting; total 30 minutes. [email or web address] Not available 03/12/2024 11:10:42 04/30/2024 04/30/2024 gate services supervisor for [place] used. #[id number] The total time devoted to today's encounter, including both the vjcq-zt-mhqr time with the patient and/or family/caregiver and dxv-lxgt-io-face time I personally spent is 30 minutes in visit, 5 minutes prep, 5 minutes charting; total 40 minutes. [email or web address] Not available 04/30/2024 12:42:33 07/30/2024 07/30/2024 gate services supervisor for [place] used. #[phone] The total time devoted to today's encounter, including both the zjza-ws-npzd time with the patient and/or family/caregiver and drk-wjwx-yh-face time I personally spent is 35 minutes in visit, 10 minutes prep, 10 minutes charting; total 55 minutes. Patient would greatly benefit from skilled coordination indicated. Patient instructed to make appointment in 2 weeks and bring all her medications with her. [email or web address] Not available 07/30/2024 18:17:55 Plan of Treatment Reminders Order Date Submit Date Provider Last Modified By Organization Details Last Modified Time Details Appointments Follow Up 2024 05:30P M YEISON TITO Not available Not available Not available Chroni c Care Coordi nator 60 2024 01:00P M Smoot Chronic Sales Development Manager Not available Not available Not available Lab hemogl obin A1C, finger stick 2023 024 [email or web address] [facility], [address] [facility], [place], [address], 01/23/2024 11:59:40 CBC 2023 024 [facility] (Registration ), [address] [place] [address] [place], [address], 01/23/2024 14:58:29 hemogl obin A1C, finger stick 2023 024 [email or web address] [facility], [address] [place] [address], [address], 04/30/2024 12:35:44 microa lbumin /creat inine, ratio, urine 2023 024 [email or web address] [facility] (Registration ), [address] [place] [address] [place], [address], 05/08/2024 13:20:11 hemogl obin A1C, finger stick 2024 025 [email or web address] [facility], [address] [place] [address], [address], 07/30/2024 18:17:56 protei n/crea tinine , ratio, urine 2024 025 [email or web address] [facility] (Registration ), [address] [place] [address] [place], [address], 07/30/2024 18:20:36 Referral None record ed. Procedures None record ed. Surgeries None record ed. Imaging None record ed. Medication Orders metfor min 500 mg tablet 2023 024 JUAN Not available 10/17/2023 11:41:44 pancho ukast 10 mg tablet 2023 024 [email or web address] Not available 01/23/2024 11:52:58 triamc inolon e aceton ivelisse 0.1 % topica l cream 2023 024 [email or web address] Not available 02/25/2024 11:08:07 amoxic illin 875 mg-pot assium clavul anate 125 mg tablet 2023 024 Not available 04/30/2024 11:35:39 Magic Mouthw froylan 2023 024 Not available 07/30/2024 17:07:24 Anbeso l (benzo bridgett) Farhan m Sanjiv th 20 % mucosa l gel 2023 Not available 04/30/2024 11:36:18 alendr demetrio 70 mg tablet 2023 [employer] [address], [place], [address], 04/30/2024 12:38:47 metfor min 500 mg tablet 2023 024 [employer] [address], [place], [address], 04/30/2024 12:42:38 atorva statin 20 mg tablet 2023 024 [employer] [address], [place], [address], 04/30/2024 12:38:48 cetiri zine 10 mg tablet 2023 024 [employer] [address], [place], [address], 04/30/2024 12:38:49 alendr demetrio 70 mg tablet 2024 025 [employer] [address], [place], [address], 07/30/2024 18:17:59 metfor min 500 mg tablet 2024 025 [employer] [address], [place], [address], 07/30/2024 18:18:02 albute rol sulfat e HFA 90 mcg/ac tuatio n aeroso l inhale r 2024 025 [employer] [address], [place], [address], 07/30/2024 18:17:59 triamc inolon e aceton ivelisse 0.1 % topica l cream 2024 [address]25 [employer] [address], [place], [address], 07/30/2024 18:18:01 atorva statin 20 mg tablet 2024 025 [employer] [address], [place], [address], 07/30/2024 18:18:04 cetiri zine 10 mg tablet 2024 025 [employer] [address], [place], [address], 07/30/2024 18:18:04 Patient TargetsNo targets recorded. Patient Instructions Encounter Date Encounter Id Patient Instructions Last Modified By Organization Details Last Modified Time 10/17/2023 [id number] I recommend getting 30+ mins of exercise most days and eating a healthy diet, rich in fruits, vegetables, and whole grains while limiting saturated fats and sugar/simple carbohydrates (soda, cookies, breads, pastas, etc). [email or web address] Not available 10/17/2023 11:39:01 01/23/2024 [id number] - Continue takin g metformin as prescribed - Maintain a healthy diet and exercise regimen - Consider an iron supplement or dietary modifications if blood test indicates anemia or low iron levels - Obtain an air purifier for the bedroom to improve air quality - Schedule a follow-up appointment in three months to evaluate progress - Reach out to the resident care director for assistance with obtaining an air purifier if needed [email or web address] Not available 01/23/2024 11:52:12 03/12/2024 [id number] - Continue using ibuprofen and Tylenol for pain relief as needed. - Monitor for any recurrence of fever, increased swelling, or other new symptoms. - Report any new or worsening pain, especially if it becomes unmanageable with current medication regimen. - Follow up as scheduled next month for further evaluation and management of dental and other health issues. [email or web address] Not available 03/12/2024 11:06:49 Reason for Referral None Reported. Results Created Date Observation Date Name Description Value Unit Range Abnormal Flag Note LastModifiedBy Organization Detail LastModifiedTime 09/28/19 24 09/28/2023 COMPL ETE BLOOD COUNT W/DIF F WBC 8.18 10_3/ uL 4.4-10 .8 normal Not Available [address] [place], [address] 09/28/2023 14:45:43 09/28/19 24 09/28/2023 COMPL ETE BLOOD COUNT W/DIF F RBC 4.47 10_6/ uL 3.93-5 .22 normal Not Available [address] [place], [address] 09/28/2023 14:45:43 09/28/19 24 09/28/2023 COMPL ETE BLOOD COUNT W/DIF F HGB 13.6 g/dL 11.2-1 5.7 normal Not Available [address] [place], [address] 09/28/2023 14:45:43 09/28/19 24 09/28/2023 COMPL ETE BLOOD COUNT W/DIF F HCT 40.2 % 36.0-4 6.0 normal Not Available [address] [place], [address] 09/28/2023 14:45:43 09/28/19 24 09/28/2023 COMPL ETE BLOOD COUNT W/DIF F MCV 90 fL 80-95 normal Not Available Oriana hollis [address] [place], [address] 09/28/2023 14:45:43 09/28/19 24 09/28/2023 COMPL ETE BLOOD COUNT W/DIF F MCH 30.4 pg 27.0-3 3.0 normal Not Available [address] [place], [address] 09/28/2023 14:45:43 09/28/19 24 09/28/2023 COMPL ETE BLOOD COUNT W/DIF F MCHC 33.8 % 32.0-3 6.0 normal Not Available [address] [place], [address] 09/28/2023 14:45:43 09/28/19 24 09/28/2023 COMPL ETE BLOOD COUNT W/DIF F RDW 12.1 % 11.7-1 4.6 normal Not Available [address] [place], [address] 09/28/2023 14:45:43 09/28/19 24 09/28/2023 COMPL ETE BLOOD COUNT W/DIF F platelet count 274 10_3/ uL 130-40 0 normal Not Available [address] [place], [address] 09/28/2023 14:45:43 09/28/19 24 09/28/2023 COMPL ETE BLOOD COUNT W/DIF F MPV 9.3 fL 8.0-11 .0 normal Not Available [address] [place], [address] 09/28/2023 14:45:43 09/28/19 24 09/28/2023 COMPL ETE BLOOD COUNT W/DIF F neutrophils % 47.2 Not Available [address] [place], [address] 09/28/2023 14:45:43 09/28/19 24 09/28/2023 COMPL ETE BLOOD COUNT W/DIF F lymphocytes % 44.5 Not Available [address] [place], [address] 09/28/2023 14:45:43 09/28/19 24 09/28/2023 COMPL ETE BLOOD COUNT W/DIF F monocytes % 6.0 Not Available [address] [place], [address] 09/28/2023 14:45:43 09/28/19 24 09/28/2023 COMPL ETE BLOOD COUNT W/DIF F eosinophils % 1.2 Not Available [address] [place], [address] 09/28/2023 14:45:43 09/28/19 24 09/28/2023 COMPL ETE BLOOD COUNT W/DIF F basophils % 0.7 Not Available [address] [place], [address] 09/28/2023 14:45:43 09/28/19 24 09/28/2023 COMPL ETE BLOOD COUNT W/DIF F immature grans % 0.4 Not Available Simin andrade[address] [place], [address] 09/28/2023 14:45:43 09/28/19 24 09/28/2023 COMPL ETE BLOOD COUNT W/DIF F nucleated RBC 0.0 % 0.0-0. 3 normal Not Available [address] [place], [address] 09/28/2023 14:45:43 09/28/19 24 09/28/2023 COMPL ETE BLOOD COUNT W/DIF F absolute neutrophil count 3.86 10_3/ uL 1.2-6. 7 normal Not Available [address] [place], [address] 09/28/2023 14:45:43 09/28/19 24 09/28/2023 COMPL ETE BLOOD COUNT W/DIF F absolute lymphocyte count 3.64 10_3/ uL 1.2-3. 4 high Not Available [address] [place], [address] 09/28/2023 14:45:43 09/28/19 24 09/28/2023 COMPL ETE BLOOD COUNT W/DIF F absolute monocyte count 0.49 10_3/ uL 0.1-0. 8 normal Not Available [address] [place], [address] 09/28/2023 14:45:43 09/28/19 24 09/28/2023 COMPL ETE BLOOD COUNT W/DIF F absolute eosinophil count 0.10 10_3/ uL 0.0-0. 7 normal Not Available [address] [place], [address] 09/28/2023 14:45:43 09/28/19 24 09/28/2023 COMPL ETE BLOOD COUNT W/DIF F absolute basophil count 0.06 10_3/ uL 0.0-0. 2 normal Not Available [address] [place], [address] 09/28/2023 14:45:43 09/28/19 24 09/28/2023 HEMOG LOBIN A1C hemoglobin A1C 6.3 % <5.7 high Refer ence Range s <5.7 Kathy l 5.7-6 .4% Predi abete s 6.5% or great er Diagn ostic for diabe kenneth (if confi rmed) Refer ences : 1. Ameri can Diabe kenneth Assoc iatio n. Clas sific ation and Diagn osis of Diabe kenneth. Diabe kenneth Care 2018 2(Sup pleme nt 1):S1 3-s28 . Not Available [address] [place], [address] 09/28/2023 15:31:52 09/28/19 24 09/28/2023 COMPR EHENS KI METAB OLIC PANEL calcium 8.2 mg/dL 8.5-10 .1 low Not Available [address] [place], [address] 09/28/2023 15:48:54 09/28/19 24 09/28/2023 COMPR EHENS KI METAB OLIC PANEL glucose 86 mg/dL 74-106 normal Not Available Oriana hollis [address] [place], [address] 09/28/2023 15:48:54 09/28/19 24 09/28/2023 COMPR EHENS KI METAB OLIC PANEL BUN 16 mg/dL 7-18 normal Not Available Oriana hollis [address] [place], [address] 09/28/2023 15:48:54 09/28/19 24 09/28/2023 COMPR EHENS KI METAB OLIC PANEL creatinine 0.6 mg/dL 0.55-1 .02 normal Not Available [address] [place], [address] 09/28/2023 15:48:54 09/28/19 24 09/28/2023 COMPR EHENS KI METAB OLIC PANEL estimated GFR 97.10 mL/min /1.73m 2 The eGFR is calcu lated from a serum creat inine using the CKD-E PI 2021 equat ion. Other varia bles requi red for the equat ion are gende r and age; this equat ion does not inclu de a race coeff icien t. This equat ion has simil ar overa ll perfo rmanc e to previ ous equat ions excep t value s may diffe r, in parti cular , in patie nts with highe r value s of eGFR and young er-ag ed adult s. Not Available [address] [place], [address] 09/28/2023 15:48:54 09/28/19 24 09/28/2023 COMPR EHENS KI METAB OLIC PANEL total protein 7.7 g/dL 6.4-8. 2 normal Not Available [address] [place], [address] 09/28/2023 15:48:54 09/28/19 24 09/28/2023 COMPR EHENS KI METAB OLIC PANEL albumin 3.9 g/dL 3.4-5. 0 normal Not Available [address] [place], [address] 09/28/2023 15:48:54 09/28/19 24 09/28/2023 COMPR EHENS KI METAB OLIC PANEL bilirubin, total 0.5 mg/dL 0.2-1. 0 normal Not Available [address] [place], [address] 09/28/2023 15:48:54 09/28/19 24 09/28/2023 COMPR EHENS KI METAB OLIC PANEL alk phos 71 U/L 46-116 normal Not Available [address] [place], [address] 09/28/2023 15:48:54 09/28/19 24 09/28/2023 COMPR EHENS KI METAB OLIC PANEL sodium 142 mmol/ L 136-14 5 normal Not Available [address] [place], [address] 09/28/2023 15:48:54 09/28/19 24 09/28/2023 COMPR EHENS KI METAB OLIC PANEL potassium 3.7 mmol/ L 3.5-5. 1 normal Not Available [address] [place], [address] 09/28/2023 15:48:54 09/28/19 24 09/28/2023 COMPR EHENS KI METAB OLIC PANEL chloride 107 mmol/ L 98-107 normal Not Available [address] [place], [address] 09/28/2023 15:48:54 09/28/19 24 09/28/2023 COMPR EHENS KI METAB OLIC PANEL CO2 27.2 mmol/ L 21.0-3 2.0 normal Not Available [address] [place], [address] 09/28/2023 15:48:54 09/28/19 24 09/28/2023 COMPR EHENS KI METAB OLIC PANEL anion gap 7.8 mmol/ L 3-11 normal Not Available [address] [place], [address] 09/28/2023 15:48:54 09/28/19 24 09/28/2023 COMPR EHENS KI METAB OLIC PANEL AST 32 U/L 15-37 normal Not Available [address] [place], [address] 09/28/2023 15:48:54 09/28/19 24 09/28/2023 COMPR EHENS KI METAB OLIC PANEL ALT 36 U/L 14-59 normal Not Available [address] [place], [address] 09/28/2023 15:48:54 09/28/19 24 09/28/2023 LIPID 2 cholesterol 161 mg/dL <200 Not Available [address] [place], [address] 09/28/2023 15:48:54 09/28/19 24 09/28/2023 LIPID 2 triglyceride 104 mg/dL <150 Not Available [address] [place], [address] 09/28/2023 15:48:54 09/28/19 24 09/28/2023 LIPID 2 HDL cholesterol 62 mg/dL 40-60 Not Available [address] [place], [address] 09/28/2023 15:48:54 09/28/19 24 09/28/2023 LIPID 2 calculated LDL 79 mg/dL <100 Natio nal Sheila stero l Educa tion Progr am (NCEP -ATPI II) class ifica tions : Sheila stero l <200 mg/dL Kelly able Sheila stero l 200-2 39 mg/dL Borde rline High Sheila stero l >or=2 40 mg/dL High HDL <40 mg/dL Low HDL >or=6 0 mg/dL High LDL <100 mg/dL Optim al LDL 100-1 29 mg/dL Near Optim al/Ab ove Optim al LDL 130-1 59 mg/dL Borde rline High LDL 160-1 89 mg/dL High LDL >or=1 90 mg/dL Very High *The above refer ence range is for adult s 18 years or older . Not Available [address] [place], [address] 09/28/2023 15:48:54 09/28/19 24 09/28/2023 TSH (W/RE F FT4) TSH (w/ref FT4) 1.25 uIU/m L 0.36-3 .74 normal Not Available [address] [place], [address] 09/28/2023 15:48:55 01/23/20 24 01/23/2024 COMPL ETE BLOOD COUNT NO DIFF WBC 9.82 10_3/ uL 4.4-10 .8 normal Not Available [address] [place], [address] 01/23/2024 14:58:29 01/23/20 24 01/23/2024 COMPL ETE BLOOD COUNT NO DIFF RBC 4.36 10_6/ uL 3.93-5 .22 normal Not Available [address] [place], [address] 01/23/2024 14:58:29 01/23/20 24 01/23/2024 COMPL ETE BLOOD COUNT NO DIFF HGB 13.4 g/dL 11.2-1 5.7 normal Not Available [address] [place], [address] 01/23/2024 14:58:29 01/23/2001/23/2024 COMPL ETE BLOOD COUNT NO DIFF HCT 40.3 % 36.0-4 6.0 normal Not Available [address] [place], [address] 01/23/2024 14:58:29 01/23/20 24 01/23/2024 COMPL ETE BLOOD COUNT NO DIFF MCV 92 fL 80-95 normal Not Available Oriana hollis [address] [place], [address] 01/23/2024 14:58:29 01/23/2001/23/2024 COMPL ETE BLOOD COUNT NO DIFF MCH 30.7 pg 27.0-3 3.0 normal Not Available [address] [place], [address] 01/23/2024 14:58:29 01/23/20 24 01/23/2024 COMPL ETE BLOOD COUNT NO DIFF MCHC 33.3 % 32.0-3 6.0 normal Not Available [address] [place], [address] 01/23/2024 14:58:29 01/23/20 24 01/23/2024 COMPL ETE BLOOD COUNT NO DIFF RDW 12.3 % 11.7-1 4.6 normal Not Available [address] [place], [address] 01/23/2024 14:58:29 01/23/20 24 01/23/2024 COMPL ETE BLOOD COUNT NO DIFF platelet count 287 10_3/ uL 130-40 0 normal Not Available [address] [place], [address] 01/23/2024 14:58:29 01/23/20 24 01/23/2024 COMPL ETE BLOOD COUNT NO DIFF MPV 9.0 fL 8.0-11 .0 normal Not Available [address] [place], [address] 01/23/2024 14:58:29 01/23/20 24 01/23/2024 hemog lobin A1C, finge rstic k hemoglobin A1C 5.9 % <5.7 Not Available [address], [address], 01/23/2024 11:05:18 04/30/20 24 04/30/2024 MICRO ALBUM IN microalbumin > 1000.0 mg/L 1.30-2 0.0 high Not Available [address] [place], [address] 04/30/2024 19:00:53 04/30/2004/30/2024 MICRO ALBUM IN creatinine urine 52.96 mg/dL Not Available Simin rosario [address] [place], [address] 04/30/2024 19:00:53 04/30/2004/30/2024 MICRO ALBUM IN microalb ug/mg crea ug/mg _cr Unabl e to calcu late ug MALB/ mg CREA resul t. Not Available [address] [place], [address] 04/30/2024 19:00:53 04/30/20 24 04/30/2024 hemog lobin A1C, finge rstic k hemoglobin A1C 5.9 % <5.7 Not Available [address], [address], 04/30/2024 11:44:47 07/30/1907/30/2024 hemog lobin A1C, finge rstic k hemoglobin A1C 6.4 % <5.7 Not Available [address], [address], 07/30/2024 17:24:51 10/25/19 24 10/25/2023 mm scree tasha bilat mammo W clarence [facility] [place] [id number] PACS TRANSC RIPTIO N REPORT _ Lorrie daniels Name: JORDON LEMOS MRN: Sex: : Age: [id number] F [id number] Accoun t: Access ion: Admit: StayTy pe: [id number] O/P Ordere d: Order ID: Submit patti: Orderfannie ng Provid er: 2023 15:30 [id number] KT ROCÍO T,DIAMANTE Olivas patti: Techno logist : Result [...] jonathan report was provid ed to the patizack t to raise their awaren ess. Use this report when you speak with the patizack t about their risks for breast cancer [...] Mike Martinez on 2023 04:07 PM EDT [address] (Lab) [address] [place] [address], [address], 02/29/2024 13:25:56 12/18/19 24 10/25/2023 mayda MUKHERJEE bilat [facility] RAD[facility]OL [place] t [id number] PACS TRANSC RIPTIO N REPORT _ Lorrie t Name: JORDON LEMOS MRN: Sex: : Age: [id number] F [id number] Accoun t: Access ion: Admit: StayTy pe: [id number] O/P Nunu d: Order ID: Submit patti: Erick Sanders er: 2023 15:30 [id number] KT DIAMANTE RAMOS patti: Techno logist : Result ed: 2023 [...] Martinez on 2023 04:07 PM EDT [email or web address] [facility] [address] [place] [address], [address], 01/02/2024 11:48:13 03/16/20 24 07/04/2022 imagi ng/di agnos tic resul t No observ ation record ed. Not Available 03/16 23:32:20 03/16/20 24 05/11/2022 imagi ng/di agnos tic resul t No observ ation record ed. Not Available 03/16 23:32:22 03/16/20 24 08/01/2021 imagi ng/di agnos tic resul t No observ ation record ed. Not Available 03/16 23:32:24 03/16/20 24 06/21/2021 XR, lumba r spine No observ ation record ed. Not Available 03/16 23:32:47 03/16/20 24 01/20/2022 bone densi ty No observ ation record ed. Not Available 03/16 23:32:48 03/16/20 24 01/20/2022 MAMMO , tomos ynthe sis, bilat eral No observ ation record ed. Not Available 03/16 23:32:50 03/16/20 24 01/19/2022 imagi ng/di agnos tic resul t No observ ation record ed. Not Available 03/16 23:33:11 03/16/20 24 08/11/2021 imagi ng/di agnos tic resul t No observ ation record ed. Not Available 03/16 23:33:13 03/16/20 24 08/24/2022 XR, hip + pelvi s No observ ation record ed. Not Available 03/16 23:33:15 03/16/20 24 06/21/2021 imagi ng/di agnos tic resul t No observ ation record ed. Not Available 03/16 23:33:18 03/16/20 24 05/09/2019 imagi ng/di agnos tic resul t No observ ation record ed. Not Available 03/16 23:33:19 03/16/20 24 05/15/2019 XR, wrist No observ ation record ed. Not Available 03/16 23:33:20 03/16/20 24 05/22/2019 XR, wrist No observ ation record ed. Not Available 03/16 23:33:21 03/16/20 24 05/28/2019 XR, wrist No observ ation record ed. Not Available 03/16 23:33:22 03/16/20 24 06/18/2019 XR, wrist No observ ation record ed. Not Available 03/16 23:33:23 03/16/20 24 08/03/2021 imagi ng/di agnos tic resul t No observ ation record ed. Not Available 03/16 23:33:25 03/16/20 24 08/11/2021 imagi ng/di agnos tic resul t No observ ation record ed. Not Available 03/16 23:33:27 03/16/20 24 09/14/2021 imagi ng/di agnos tic resul t No observ ation record ed. Not Available 03/16 23:33:28 03/16/20 24 05/09/2019 imagi ng/di agnos tic resul t No observ ation record ed. Not Available 03/16 23:33:29 03/16/20 24 05/11/2019 imagi ng/di teshaos tic resul t No observ ation record ed. Not Available 03/16 23:33:30 Result Notes None recorded. Problems Name Problem SNOMED Code Status Onset Date Resolution Date Notes Provider Name and Address Organization Details Recorded Time Headache 67846779 [facility] Cough 33879914 Active 2016 Kelliher Seymour [facility] 4 11:33:28 Nicotine dependen ce 91179543 [facility] 4 11:34:05 Low back pain 486030338 [facility] 4 11:34:01 Eczema 88863811 Active 2020 Kelli Dawn [facility] 4 11:33:36 Psychody namic relation ship finding 541359043 [facility] 4 11:34:25 Adult health examinat ion Active 2021 [facility] 4 11:33:21 Inactive tubercul osis 06038380 Active 2021 [facility] 4 11:33:57 Idiopath ic aseptic necrosis of bone 968732088 Active [facility] 4 11:33:55 Pre-surg loretta evaluati on Completed 202108/18/2021 Problem Code: Z01.818; Problem Code Type: ICD-10; Not Available [facility] 04:28:33 Hypergly cemia 39482530 Completed 202112/22/2021 Problem Code: R73.9; Problem Code Type: ICD-10; Not Available [facility] 3 04:28:33 Hyperlip idemia 99781332 [facility] 11:33[facility]51 Prediabe kenneth 236283473 Active 2021 Kelli Seymour [facility] 4 11:34:10 Menopaus e present 612430173 Completed 202106/16/2022 Problem Code: Z78.0; Problem Code Type: ICD-10; Not Available [facility] 3 04:28:33 Heart murmur 70396832 Active 2021 Kelliher Seymour [facility] 4 11:33:47 Senile osteopor osis 30560597 Active 2021 [facility] 11:34:29 Dizzines s and giddines s 055795208 Active 2021 [facility] 4 11:33:32 Tobacco dependen ce caused by cigarett es [id number] 669295 Completed 201603/28/2023 Problem Code: F17.210; Problem Code Type: ICD-10; Not Available [facility] 3 04:28:34 Counseli ng Completed 201607/20/2021 Problem Code: Z71.89; Problem Code Type: ICD-10; Not Available [facility] 3 04:28:35 Screenin g for osteopor osis Completed 202106/16/2022 Problem Code: Z13.820; Problem Code Type: ICD-10; Not Available [facility] 3 04:28:37 Vitamin D deficien cy 81042942 Active 2022 Kelli Seymour [facility] 11:34:38 Chronic cough 10175135 Active 2023 Kelli rene arzola, [facility] 11:33:25 Fatigue 95361644 Active 2023 Kelli Seymour null, [facility] 11:33:39 Poor oral hygiene 562954177 Active 2023 Kelli Leyvamalileny arzola, [facility] 11:34:07 Allergic rhinitis 31587136 Active 2023 YEISON TITO, PROPERTY ASSESSMENT MONITOR [address], [place], [address] , [facility] 11:32:56 Dyspnea 106536439 Active 2023 YEISON , PROPERTY ASSESSMENT MONITOR [address], [facility] [address] , [facility] 11:54:38 Infectio n of tooth 184060435 Active 2023 YEISON TITO, PROPERTY ASSESSMENT MONITOR [address], [place], [address] , [facility] 10:51:40 Atopic dermatit is 77943079 Active 2023 YEISON , PROPERTY ASSESSMENT MONITOR [address], [place], [address] , [facility] 4 12:38:42 Type 2 diabetes mellitus without complica tion 791782939 Active 2023 YEISON , PROPERTY ASSESSMENT MONITOR [address], [place], [address] , [facility] 4 12:41:14 Uncontro lled type 2 diabetes mellitus 908379639 Active 2023 YEISON , PROPERTY ASSESSMENT MONITOR [address], [place], [address] , [facility] 12:41:31 Notes:*Problem Name: Unspeci fied fracture of left wrist and hand, initial encounter for closed fracture *Problem Status: inactive *Comments: 05/09/2019 - Comments only - Steven Driscoll - Wear wrist splint. Ice three times a day for 15 minutes. Referal to [facility] for wrist x-ray. *Problem Code: S62.92xA *Problem Code Type: ICD-10 *Note Date: 05/09/2019 Problem Notes None recorded. Procedures Surgical History None recorded. Imaging Results Imaging Date Name Status LastModified by Organiz ation Details LastModified Time 10/25/2023 mm screening bilat mammo W clarence W CAD completed [email or web address] [facility] (Lab) [address] [place] [address], [id number], 02/29/2024 13:25:56 10/25/2023 MAMMO, screening, bilateral completed [email or web address] [facility] - Radiology [address] [place] [address], [id number], 01/02/2024 11:48:13 07/04/2022 imaging/diagno stic result completed Information not available 03/16/2024 23:32:20 05/11/2022 imaging/diagno stic result completed Information not available 03/16/2024 23:32:22 08/01/2021 imaging/diagno stic result completed Information not available 03/16/2024 23:32:24 06/21/2021 XR, lumbar spine completed Information not available 03/16/2024 23:32:47 01/20/2022 bone density completed Information not available 03/16/2024 23:32:48 01/20/2022 MAMMO, tomosynthesis, bilateral completed Information not available 03/16/2024 23:32:50 01/19/2022 imaging/diagno stic result completed Information not available 03/16/2024 23:33:11 08/11/2021 imaging/diagno stic result completed Information not available 03/16/2024 23:33:13 08/24/2022 XR, hip + pelvis completed Information not available 03/16/2024 23:33:15 06/21/2021 imaging/diagno stic result completed Information not available 03/16/2024 23:33:18 05/09/2019 imaging/diagno stic result completed Information not available 03/16/2024 23:33:19 05/15/2019 XR, wrist completed Information no t available 03/16/2024 23:33:20 05/22/2019 XR, wrist completed Information no t available 03/16/2024 23:33:21 05/28/2019 XR, wrist completed Information no t available 03/16/2024 23:33:22 06/18/2019 XR, wrist completed Information no t available 03/16/2024 23:33:23 08/03/2021 imaging/diagno stic result completed Information not available 03/16/2024 23:33:25 08/11/2021 imaging/diagno stic result completed Information not available 03/16/2024 23:33:27 09/14/2021 imaging/diagno stic result completed Information not available 03/16/2024 23:33:28 05/09/2019 imaging/diagno stic result completed Information not available 03/16/2024 23:33:29 05/11/2019 imaging/diagno stic result completed Information not available 03/16/2024 23:33:30 Procedure Notes None recorded. Medical Equipment None Reported. Allergies No known drug allergies Medications Name Sig Start Date Stop Date Status Note LastModified by Organization Details LastModified Time Magic Mouthwash swich and spit 5 ml 4 times a day for 7 day 2023 active Not Available Not Available Not Avai lable metformin 500 mg tablet TAKE 1 TABLET BY MOUTH TWICE DAILY 2024 active Not Available Not Available Not Avai lable Anbesol (benzocaine ) Maximum Strength 20 % mucosal gel Take 1 applicati on 4 times a day by mucous route for 14 days. 04/30 completed Not Available Not Available Not Available atorvastati n 20 mg tablet Take 1 tablet by mouth every night 2024 active Not Available Not Available Not Avai lable cetirizine 10 mg tablet Take 1 tablet every day by oral route. 2024 active Not Available Not Available Not Avai lable Lidocaine Viscous 2 % mucosal solution SWISH AND SPIT WITH 5 ML 4 TIMES A DAY FOR 7 DAYS 07/30 completed Not Available Not Available Not Available alendronate 70 mg tablet TAKE 1 TABLET BY MOUTH ONE DAY A WEEK ON AN EMPTY STOMACH WITH A FULL GLASS OF WATER, AND STAY UPRIGHT FOR 30 MINUTES AFTER 2024 active Not Available Not Available Not Avai lable triamcinolo ne acetonide 0.1 % topical cream Apply 1 a small amount to affected area twice a day until symptoms resolve 2024 active Not Available Not Available Not Avai lable montelukast 10 mg tablet TAKE 1 TABLET BY MOUTH EVERY DAY active Not Available Not Available No t Available albuterol sulfate HFA 90 mcg/actuati on aerosol inhaler Inhale 2 puffs every 4 hours by inhalatio n route. 2024 active Not Available Not Available Not Avai lable amoxicillin 875 mg-potassiu m clavulanate 125 mg tablet Take 1 tablet every 12 hours by oral route for 7 days. 04/30 completed Not Available Not Available Not Available Vitals Date Recorded Body height Body mass index (BMI) Body weight Body temperature Oxygen saturation Oxygen saturation in Arterial blood by Pulse oximetry Heart rate Systolic blood pressure Diastolic blood pressure Provider Name and Address Organization Details Last Updated DateTime 4 152.4 cm 24.2 kg/m2 25132.4 5 g 97.6 [degF] 98 % 98 % 103 /min 112 mm[Hg] 70 mm[Hg] DINA BACA RN [place] [facility]. 4 11:02:20 Date Recorded Body height Body mass index (BMI) Body weight Body temperature Oxygen saturation Oxygen saturation in Arterial blood by Pulse oximetry Heart rate Systolic blood pressure Diastolic blood pressure Provider Name and Address Organization Details Last Updated DateTime 4 152.4 cm 22.5 kg/m2 54659.1 2 g 97 [degF] 95 % 95 % 78 /min 110 mm[Hg] 72 mm[Hg] RENATA DORADO MA [facility] 4 11:03:02 Date Recorded Body height Body mass index (BMI) Body weight Body temperature Oxygen saturation Oxygen saturation in Arterial blood by Pulse oximetry Systolic blood pressure Diastolic blood pressure Provider Name and Address Organization Details Last Updated DateTime 4 152.4 cm 22.5 kg/m2 30997.1 2 g 97.8 [degF] 99 % 99 % 108 mm[Hg] 72 mm[Hg] DINA BACA RN [facility] 4 10:39:03 Date Recorded Body height Body mass index (BMI) Body weight Body temperature Systolic blood pressure Diastolic blood pressure Provider Name and Address Organization Details Last Updated DateTime 4 152.4 cm 22.7 kg/m2 00115.8 1 g 97.8 [degF] 110 mm[Hg] 68 mm[Hg] LUIS BURROWS LPN [facility] 4 12:27:41 Date Recorded Body height Body mass index (BMI) Body weight Body temperature Oxygen saturation Oxygen saturation in Arterial blood by Pulse oximetry Heart rate Systolic blood pressure Diastolic blood pressure Provider Name and Address Organization Details Last Updated DateTime 5 152.4 cm 23.7 kg/m2 35995.3 8 g 97.6 [degF] 95 % 95 % 84 /min 112 mm[Hg] 70 mm[Hg] LUIS BURROWS LPN [facility] 5 17:03:35 Social History Question Answer Notes LastModified by Organizat ion Details LastModified Time Tobacco Smoking Status Former Smoker LUZ FALCON RN [facility] [place], [facility] 09/28/2023 10:15:23 When Did You Quit Smoking? 1-5yearssinc elastcigaret te Information not available 09/28/2023 Sex: Female Functional Status None recorded. Mental Status None recorded. Family History Nothing Reported Notes:*Problem: sister - [place] Father [place] Medical History No medical history recorded. Gynecological HistoryNo gynecological history recorded. Obstetrics History GPAL:G 0 P 0 0 0 0 Immunizations Vaccine Type Date Status Note Provider Nam e and Address Organization Details Recorded Time COVID-19, mRNA, LNP-S, PF, ankit-sucrose, 30 mcg/0.3 mL 4 completed LUIS BURROWS LPN null, [place] - [facility] 04/30/2024 13:56:06 Influenza, high-dose, trivalent, PF 4 completed YEISON FRANCIS, PROPERTY ASSESSMENT MONITOR [address], [place], [address], [facility] 04/30/2024 12:37:51 Tdap 6 completed Not Available [facility] 05/11/2023 05:53:08 Influenza, split virus, quadrivalent, PF 1 completed Not Available [facility] 05/11/2023 05:53:09 Influenza, high-dose, quadrivalent, PF 2 completed Not Available [facility] 05/11/2023 05:53:10 COVID-19, mRNA, LNP-S, PF, 100 mcg/0.5mL dose or 50 mcg/0.25mL dose 1 completed Not Available [facility] 05/11/2023 05:53:10 COVID-19, mRNA, LNP-S, PF, 100 mcg/0.5mL dose or 50 mcg/0.25mL dose 1 completed Not Available [facility] 05/11/2023 05:53:10 COVID-19, mRNA, LNP-S, PF, 100 mcg/0.5mL dose or 50 mcg/0.25mL dose 2 completed Not Available [facility] 05/11/2023 05:53:10 COVID-19, mRNA, LNP-S, PF, 100 mcg/0.5mL dose or 50 mcg/0.25mL dose 1 completed Not Available [facility] 05/11/2023 05:53:11 COVID-19, mRNA, LNP-S, bivalent, PF, 30 mcg/0.3 mL dose 2 completed [facility] Available [facility] 05/11/2023 05:53:11 pneumococcal polysaccharide PPV23 2 completed Not Available [facility] 05/11/2023 05:53:11 influenza, unspecified formulation 6 completed Not Available [facility] 05/11/2023 05:53:11 Influenza, high-dose, quadrivalent, PF 3 completed Not Available [facility] 07/13/2023 05:33:06 Pneumococcal conjugate PCV20, polysaccharide HMQ157 conjugate, adjuvant, PF 3 completed Not Available [facility] 07/13/2023 05:33:06 Past Encounters Encounter ID Performer Location Encounter Start Date Encounter Closed Date Diagnosis/Indication Diagnosis SNOMED-CT Code Diagnosis ICD10 Code Diagnosis Note [id number] [address] [address] 09/28/2023 09:58:38 09/28/2023 11:08:07 Screening mammography 70695151 Z12.31 Fatigue 06144652 R53.83 Patient reports increased fatigue and weight gain. Monitoring labs today. Differenti al diagnoses include thyroid disorder, anemia, depression . Lifestyle modificati ons discussed with patient via interprete r. Encourage good diet, exercise, adequate sleep and stress reduction. Chronic cough 71160962 R 05.3 Chronic cough possibly related to secondhand smoke exposure or other allergens. Lung sounds CTA. Albuterol inhaler 2 puffs every 4 hours as needed. Follow-up in 1 month or sooner if needed. Poor oral hygiene 216924 009 R46.89 Poor dentition with multiple caries. Patient encouraged to make a dental appointmen t. [id number] [address] [address] 10/17/2023 10:45:04 10/17/2023 11:33:00 Chronic cough 05523693 R05.3 Chronic cough possibly related to secondhand smoke exposure or other allergens. Lung sounds CTA. Demonstrat ed proper inhaler use with the assistance of [place] online expert medical writer . Patient able to demonstrat e using the inhaler today. Patient encouraged to use. If she continues to have increase cough and phlegm production at night, we may consider montelukas t. At this time we will start with the albuterol inhaler as needed. She understand s and is in agreement of the plan. Uncontroll ed type 2 diabetes mellitus 501827441 E11.65 Recent A1c of 6.3%. Reviewed diabetic diet along with complicati ons that can occur due to uncontroll ed diabetes. Patient agreeable to starting medication . Not interested in injectable s. Due to concern of cost, we will start with metformin 500 mg twice a day. Side effects reviewed with patient. Patient understand s and is in agreement of plan. She will return to clinic in 3 months for repeat A1c. [id number] YEISON FRANCIS, PROPERTY ASSESSMENT MONITOR[address] [address] 01/23/2024 10:47:05 01/23/2024 11:58:00 Prediabetes 202867819 R73.03 The patient's A1c has improved since starting metformin, but it is still slightly above normal. Continue with the current medication and monitor her blood sugar levels. Encourage the patient to maintain a healthy diet and exercise regimen. [facility] her progress. Allergic rhinitis 276256 04 J30.9 Experienci ng intermitte nt seasonal allergy symptoms along with pruritus of skin. Start montelukas t 10 mg nightly. Reviewed potential side effects. Continue to monitor follow-up in 3 months or sooner if needed Eczema 90699015 L30.9 Supportive care discussed including treatment of dry skin. Consider allergy medication to help alleviate symptoms. Triamcinol one as needed. Continue to monitor follow-up as needed Fatigue 57910247 R53.83 The patient's tiredness may be related to her vegan diet and the potential for anemia due to insufficie nt iron intake. Conduct a blood test to determine if she is anemic and if her iron levels are adequate. If the test reveals anemia or low iron levels, consider an iron supplement and/or dietary modificati ons to improve her overall health. Dyspnea 826284510 R06.00 The patient's shortness of breath may be related to her 's smoking in the house. Discuss the possibilit y of obtaining an air purifier for the patient's bedroom to help improve air quality and alleviate her shortness of breath. Refer the patient to a care coordinato r to explore options for financial assistance in acquiring an air purifier. [id number] YEISON [address] [address] 03/12/2024 10:36:52 03/12/2024 11:53:43 Infection of tooth 488993527 K04.7 Will give oral, topical meds and wash. STRICT ER precaution s for any worsening of acute sxs or new sxs such as fever, chills, streaking, sever headache, neck pain or swelling or stiffness. Patient understand s and agrees with plan. Start amoxicilli n 875 mg-potassi um clavulanat e 125 mg tablet 1 tablet every 12 hours for 7 days Start Magic Mouthwash Swish 5ml of liquid around mouth, QID for 7 days Start Anbesol (benzocain e) Maximum Strength 20 % mucosal gel 1 applicatio n 4 times a day for 14 daysCase note sent to Dasha for f/u to help iniate dental care [id number] YEISON [address] [address] 04/30/2024 11:25:33 04/30/2024 12:18:38 Prediabetes 536006837 R73.03 Has not had metformin 1 month due to pharmacy closing. New prescripti on sent to [facility] in [facility]. A1c remains the same at 5.9%. Lifestyle modificati ons discussed with patient regarding diet, exercise and sleep hygiene. Patient is continuing with metformin 500 mg twice a day and follow-up in clinic in 3 for repeat A1c or sooner. Active or passive immunization 903411679 Z23 Dental Infection - resolved at this time- Patient [facility] not [facility] with a dental officePlan :- Encourage patient to make an appointmen t with a dentist- Educate on the importance of dental care in preventing recurrent infections and potential heart disease Atopic dermatitis 314582 01 L20.9 Most likely related to allergies- Patient reports itch in throat and dry, itchy skin with dry patchesPla n:- Recommend using gentle, fragrance- free soaps and lotions- Prescribe cetirizine , once a day for allergies Hyperlipidemia 15585987 E78.5 Senile osteoporosis 1804 0001 M81.0 Poor oral hygiene 915877 009 R46.89 Poor dentition with multiple caries. Patient encouraged to make a dental appointmen t. Type 2 timothy betes mellitus without complication 511838807 E11.9 [id number] YEISON FRANCIS, MAYRA [facility] [address] [place] [address] 07/30/2024 15:26:48 07/30/2024 18:04:54 Eczema 03246168 L30.9 Reports intermitte nt itchy skin with rash, pimples, burning on forehead, back, shoulders, legs, armpits, buttocks, hands. Rash not present. Prescribed cream helpful, lotion ineffectiv e.- Continue prescribed cream- Avoid fragranced detergents /soaps- Continue prescribed soap Hyperlipidemia 40378832 E78.5 Continues to medication . Senile osteoporosis 1804 0001 M81.0 Hx of osteoporos is, on medication .- Continue osteoporos is med weekly on empty stomach with full glass of water- Remain upright for 30 min post-med Chronic cough 04233457 R 05.3 Uses salt water for relief. Possible bronchospa sm; has albuterol inhaler but rarely uses due to misunderst anding.- Advise proper albuterol use: 2 puffs q4h PRN for cough- Recommend adequate hydration, limit salt intake Type 2 timothy betes mellitus without complication 593859019 E11.9 Atopic dermatitis 046009 01 L20.9 Most likely related to allergies- Patient reports itch in throat and dry, itchy skin with dry patchesPla n:- Recommend using gentle, fragrance- free soaps and lotions- Prescribe cetirizine , once a day for allergies Prediabetes 493313109 R7 3.03 A1c increased from 5.9 to 6.4 in 3 months, indicating progressio n from prediabete s to diabetes. Management adjustment :- Increase Metformin to 2 pills BID- Educate on reducing carb/sugar intake, especially rice and noodles- Recommend increased exercise for blood sugar management - F/U with Katt in 2 weeks for med review Active or passive immunization 065930588 Z23 Dental Infection - resolved at this time- Patient has not yet [facility] with a dental officePlan :- Encourage patient to make an appointmen t with a dentist- Educate on the importance of dental care in preventing recurrent infections and potential heart disease Poor oral hygiene 002344 009 R46.89 Health Concerns Section Related Observation LastModified by Organization Detai ls LastModified Time None Recorded Concern Status LastModified by Organization Details LastModified Time None Recorded Advance Directives Directive None Recorded Payers Encounter Date Sequence Insurance Name Policy Number Policy Vargas Covered Member ID Vargas Member ID Guarantor Name 10/17/2023 1 [employer] (MEDICARE REPLACEMENT/A DVANTAGE - PPO) [id number] Radha T Le [id number] Radha T Le 01/23/2024 1 [employer] (MEDICARE REPLACEMENT/A DVANTAGE - PPO) [id number] Radha T Le [id number] Radha T Le 03/12/2024 1 [employer] (MEDICARE REPLACEMENT/A DVANTAGE - PPO) [id number] Radha T Le [id number] Radha T Le 04/30/2024 1 [employer] (MEDICARE REPLACEMENT/A DVANTAGE - PPO) [id number] Radha T Le [id number] Radha T Le 07/30/2024 1 [place] [employer] Rdaha T Le [id number] Radha T Le 07/30/2024 2 [employer] (PPO) Radha T Dorothy [id number] Radha T Notes Date Note Type Note Provider Name and Address Organization Details Recorded Time 10/17/2023 text/html 67-year-old tania lemos presents to clinic today to follow-up from a visit last month for a cough and to review recent lab work. Visit is facilitated with a [place] expert medical writer # [id number]. Patient reports her cough is somewhat better. [...] chills, chest pain, shortness of breath, N/V/D. YEISON FRANCIS, PROPERTY ASSESSMENT MONITOR[address], [place], [address], [facility] 10/17/2023 11:42:37 01/23/2024 text/html The patient pres ents with concerns about tiredness and shortness of breath. Visit conducted via inventory associate and driver # [id number] Prediabetes: The patient's A1c has come down [...] smoking in the house [address] [place], [address], [facility] 01/23/2024 11:57:03 03/12/2024 text/html The patient pres ents with dental pain and swelling in the lower jaw. The patient is a 68-year-old female presenting with a dental pain located in the left lower aspect of her mouth x 1 week. The pain has been managed with ibuprofen and Tylenol which provide some relief. The patient also notes swelling in the affected region. She reports a history of diffuse tooth decay and fractured teeth. She has never seen a dentist before. In the past week, she experienced a low-grade fever, but currently denies any fever. She is tolerating oral intake without issues and denies experiencing symptoms such as shortness of breath, chest pain, nausea, vomiting, or diarrhea. There is no explicit prior treatment or specific dental care mentioned prior to this presentation. - The patient has never seen a dentist. - Healthcare access: Patient has never seen a dentist before. [address], [place], [address], [facility] 03/12/2024 11:10:46 04/30/2024 text/html Visit conducted using online inventory associate and driver #[id number] 68-year-old [place] speaking female presents today for a follow-up on her diabetes management. She reports non-compliance with her medication regimen for the past month. Her A1c level remains unchanged compared to three months ago. She also mentions a history of dental infection, for which she has not yet established care with a dentist. The patient denies experiencing chest pain or shortness of breath. However, she reports a persistent itch in her throat and dry, itchy skin with water spots, which she has been experiencing for years. She believes these symptoms are due to allergies. YEISON FRANCIS, PROPERTY ASSESSMENT MONITOR [address], [place], [address], [facility] 04/30/2024 12:43:29 07/30/2024 text/html HPI: 68yo [place]-speaking F with prediabetes presents with A1c 6.4, indicating progression to DM. Reports chronic AM nasal congestion, rhinorrhea, and vertigo. Lives in old apartment with poor air quality; smokes outside. Skin: Hx of itchy rash with pimples and burning sensation on forehead, back, shoulders, legs, armpits, buttocks, and hands (not present currently). Prescribed cream helpful; lotion ineffective. Respiratory: Has albuterol inhaler (rarely used). Uses salt on her tongue for cough. PMH: - Prediabetes - Hyperlipidemia - Fatigue - Osteoporosis Medications/Suppleme nts: - Metformin (dosage unknown) - Albuterol inhaler (PRN) - Atorvastatin (nightly for cholesterol) - Osteoporosis med (weekly, fasting) - Cetirizine, Montelukast (allergies) - Nasal spray (1 squirt each nostril QD) - Cream (for skin rash) Social Hx: - Lives in old apartment with poor air quality - ; smokes outside - Diet: advised to reduce carbs/sugar (rice, noodles) - Exercise: advised to increase ROS: - ENT: Chronic AM nasal congestion, rhinorrhea, vertigo - Respiratory: Cough - Derm: Hx of itchy rash (see above) - Allergic/Immunologic : Allergy symptoms (implied by meds) YEISON BAUGHOST, PROPERTY ASSESSMENT MONITOR [address], [place], [address], [facility]. 07/30/2024 18:18:02 OBGyn Episode No OBEpisode recorded.
--- OUTSIDE RECORDS SUMMARY | 2024-07-30 20:00 | XMS_ITS | Continuity of Care Document ---
Author Organization [facility], [facility] Address [address] [place] [address] Assessment Encounter Date Assessment Date Assessment LastModified by Organization Details LastModified Time 07/30/2024 07/30/[address] [facility] used. #[id number] The total time devoted to today's encounter, including both the siqb-zl-xfht time with the patient and/or family/caregive r and ata-opbl-fj-fac e time I personally spent is 35 minutes in visit, 10 minutes prep, 10 minutes charting; total 55 minutes. Patient would greatly benefit from skilled coordination indicated. Patient instructed to make appointment in 2 weeks and bring all her medications with her. Not available 07/30/2024 18:17:55 Plan of Treatment Reminders Order Date Submit Date Provider Last Modified By Organization Details Last Modified Time Details Appointments Follow Up 2024 05:30P M YEISON TITO Not available Not available Not available Chroni c Care Coordi nator 60 2024 01:00P M [place] Chronic Admitting Clerk Not available Not available Not available Lab hemogl obin A1C, finger stick 2024 025 [facility], [address], [place], [address], 07/30/2024 18:17:56 protei n/crea tinine , ratio, urine 2024 025 [email or web address] [facility] (Registration ), [address] [place] [address] [place], [address], 07/30/2024 18:20:36 Referral None record ed. Procedures None record ed. Surgeries None record ed. Imaging None record ed. Medication Orders alendr demetrio 70 mg tablet 2024 025 [facility] [address], [place], [address], 07/30/2024 18:17:59 metfor min 500 mg tablet 2024 025 [facility] [address], [place], [address], 07/30/2024 18:18:02 albute rol sulfat e HFA 90 mcg/ac tuatio n aeroso l inhale r 2024 025 [facility] [address], [place], [address], 07/30/2024 18:17:59 triamc inolon e aceton ivelisse 0.1 % topica l cream 2024 025 [facility] [address], [place], [address], 07/30/2024 18:18:01 atorva statin 20 mg tablet 2024 025 [facility] [address], [place], [address], 07/30/2024 18:18:04 cetiri zine 10 mg tablet 2024 025 [facility] [address], [place], [address], 07/30/2024 18:18:04 Patient TargetsNo targets recorded. Patient InstructionsNo instructions recorded. Reason for Referral None Reported. Results Created Date Observation Date Name Description Value Unit Range Abnormal Flag Note LastModifiedBy Organization Detail LastModifiedTime 07/30/19 25 07/30/2024 hemog lobin A1C, gary rstic k hemoglobin A1C 6.4 % <5.7 Not Available [facility] [address], [place], [address], 07/30/2024 17:24:51 Result Notes None recorded. Problems Name Problem SNOMED Code Status Onset Date Resolution Date Notes Provider Name and Address Organization Details Recorded Time Headache 01624453 Active 2016 Kelliher Seymour [facility], [facility], [facility]. 4 11:33:42 Cough 25176978 Active 2016 [facility] 4 11:33:28 Nicotine dependen ce 13595868 Active 2016 [facility] 4 11:34:05 Low back pain 464092419 [facility], [facility], [facility]. 4 11:34:01 Eczema 04989417 [facility], [facility]. 4 11:33:36 Psychody namic relation ship finding 393674122 Active 2021 Kelliher Seymour [facility], [facility] 4 11:34:25 Adult health examinat ion Active 2021 Kelli Dawn [facility] 4 11:33:21 Inactive tubercul osis 87222007 Active 2021 [facility], [facility]. 4 11:33:57 Idiopath ic aseptic necrosis of bone 325710318 Active 2021 [facility]. 4 11:33:55 Pre-surg loretta evaluati on Completed 202108/18/2021 Problem Code: Z01.818; Problem Code Type: ICD-10; Not Available [facility] 3 04:28:33 Hypergly cemia 16032496 Completed 202112/22/2021 Problem Code: R73.9; Problem Code Type: ICD-10; Not Available [facility] 3 04:28:33 Hyperlip idemia 38877888 [facility] 4 11:33:51 Prediabe kenneth 689076796 Active 2021 [facility] 4 11:34:10 Menopaus e present 360000622 Completed 202106/16/2022 Problem Code: Z78.0; Problem Code Type: ICD-10; Not Available [facility] 3 04:28:33 Heart murmur 00524954 Active 2021 [facility] 4 11:33:47 Senile osteopor osis 91314247 Active 2021 [facility] 4 11:34:29 Dizzines s and giddines s 462959579 Active 2021 [facility] 4 11:33:32 Tobacco dependen ce caused by cigarett es 65811813124 760780 Completed 201603/28/2023 Problem Code: F17.210; Problem Code Type: ICD-10; Not Available [facility] 3 04:28:34 Counseli ng Completed 201607/20/2021 Problem Code: Z71.89; Problem Code Type: ICD-10; Not Available [facility] 3 04:28:35 Screenin g for osteopor osis Completed 202106/16/2022 Problem Code: Z13.820; Problem Code Type: ICD-10; Not Available [facility] 3 04:28:37 Vitamin D deficien cy 61629584 Active 2022 Kelli Leyvamalileny null, [facility] 11:34:38 Chronic cough 13560916 Active 2023 Kelli Leyvamalileny null, [facility] 11:33:25 Fatigue 50826011 Active 2023 Kelli Leyvamalileny null, [facility] 11:33:39 Poor oral hygiene 859377300 Active 2023 Kelli Leyvamalileny null, [facility] 11:34:07 Allergic rhinitis 79266576 Active [address], [facility] [address] , [facility] 11:32:56 Dyspnea 902911289 Active [address], [facility] [address] , [facility] 11:54:38 Infectio n of tooth 254512358 Active [address], [facility] [address] , [facility] 10:51:40 Atopic dermatit is 42769324 Active [address], [facility] [address] , [facility] 4 12:38:42 Type 2 diabetes mellitus without complica tion 512292042 Active [address], [facility] [address] , [facility] 12:41:14 Uncontro lled type 2 diabetes mellitus 486436658 Active 20[place], [address] , [facility]. 12:41:31 Notes:*Problem Name: Unspeci fied fracture of left wrist and hand, initial encounter for closed fracture *Problem Status: inactive *Comments: 05/09/2019 - Comments only - Steven Driscoll - Wear wrist splint. Ice three times a day for 15 minutes. Referal to Agatha for wrist x-ray. *Problem Code: S62.92xA *Problem Code Type: ICD-10 *Note Date: 05/09/2019 Problem Notes None recorded. Medical Equipment None Reported. [...] Updated DateTime 5 152.4 cm 23.7 kg/m2 27618.3 8 g 97.6 [degF] 95 % 95 % 84 /min 112 mm[Hg] 70 mm[Hg] LUIS BURROWS LPN [facility] 5 17:03:35 Social History Question Answer Notes LastModified by Organizat ion Details LastModified Time Tobacco Smoking Status Former Smoker LUZ FALCON RN null, [facility] 09/28/2023 10:15:23 When Did You Quit Smoking? 1-5yearssinc elastcigaret te [id number] Information not available 09/28/2023 Sex: Female Functional [...] mL 4 completed LUIS BURROWS LPN null, [facility] 04/30/2024 13:56:06 Influenza, high-dose, trivalent, PF 4 completed MAYRA MURRAY [address], [place], [address], [facility] 04/30/2024 12:37:51 Tdap 6 completed Not Available [facility] 05/11/2023 05:53:08 Influenza, split virus, quadrivalent, PF 1 completed Not Available [facility] 05/11/2023 05:53:09 Influenza, high-dose, quadrivalent, PF 2 completed Not Available [facility] 05/11/2023 05:53:10 COVID-19, mRNA, LNP-S, PF, 100 mcg/0.5mL dose or 50 mcg/0.25mL dose 1 completed Not Available [facility] 05/11/2023 05:53:10 COVID-19, mRNA, LNP-S, PF, 100 mcg/0.5mL dose or 50 mcg/0.25mL dose 1 completed Not Available [facility] 05/11/2023 05:53:10 COVID-19, mRNA, LNP-S, PF, 100 mcg/0.5mL dose or 50 mcg/0.25mL dose 2 completed Not Available [facility] 05/11/2023 05:53:10 COVID-19, mRNA, LNP-S, PF, 100 mcg/0.5mL dose or 50 mcg/0.25mL dose 1 completed Not Available [facility] 05/11/2023 05:53:11 COVID-19, mRNA, LNP-S, bivalent, PF, 30 mcg/0.3 mL dose 2 completed Not Available [facility] 05/11/2023 05:53:11 pneumococcal polysaccharide PPV23 2 completed Not Available [facility] 05/11/2023 05:53:11 influenza, unspecified formulation 6 completed Not Available [facility] 05/11/2023 05:53:11 Influenza, high-dose, quadrivalent, PF 3 completed Not Available [facility] 07/13/2023 05:33:06 Pneumococcal conjugate PCV20, polysaccharide UVA098 conjugate, adjuvant, PF 3 completed Not Available [facility] 07/13/2023 05:33:06 Past Encounters Encounter ID Performer Location Encounter Start Date Encounter Closed Date Diagnosis/Indication Diagnosis SNOMED-CT Code Diagnosis ICD10 Code Diagnosis Note [id number] MAYRA MURRAY [address] [place] [address] 07/30/2024 15:26:48 07/30/2024 18:04:54 Eczema 35883938 L30.9 Reports intermitte nt itchy skin with rash, pimples, burning on forehead, back, shoulders, legs, armpits, buttocks, hands. Rash not present. Prescribed cream helpful, lotion ineffectiv e.- Continue prescribed cream- Avoid fragranced detergents /soaps- Continue prescribed soap Hyperlipidemia 37702097 E78.5 Continues to medication . Senile osteoporosis 1804 0001 M81.0 Hx of osteoporos is, on medication .- Continue osteoporos is med weekly on empty stomach with full glass of water- Remain upright for 30 min post-med Chronic cough 20771671 R 05.3 Uses salt water for relief. Possible bronchospa sm; has albuterol inhaler but rarely uses due to misunderst anding.- Advise proper albuterol use: 2 puffs q4h PRN for cough- Recommend adequate hydration, limit salt intake Type 2 timothy betes mellitus without complication 698257200 E11.9 Atopic dermatitis 733859 01 L20.9 Most likely related to allergies- Patient reports itch in throat and dry, itchy skin with dry patchesPla n:- Recommend using gentle, fragrance- free soaps and lotions- Prescribe cetirizine , once a day for allergies Prediabetes 547732299 R7 3.03 A1c increased from 5.9 to 6.4 in 3 months, indicating progressio n from prediabete s to diabetes. Management adjustment :- Increase Metformin to 2 pills BID- Educate on reducing carb/sugar intake, especially rice and noodles- Recommend increased exercise for blood sugar management - F/U with Katt in 2 weeks for med review Active or passive immunization 705165806 Z23 Dental Infection - resolved at this time- Patient has not yet [facility]he d a [facility] with a dental officePlan :- Encourage patient to make an appointmen t with a dentist- Educate on the importance of dental care in preventing recurrent infections and potential heart disease Poor oral hygiene 664874 009 R46.89 Health Concerns Section Related Observation LastModified by Organization Detai ls LastModified Time None Recorded Concern Status LastModified by Organization Details LastModified Time None Recorded Payers Encounter Date Sequence Insurance Name Policy Number Policy Vargas Covered Member ID Vargas Member ID Guarantor Name 07/30/2024 1 [place] [employer] Radha De La Cruz [id number] Radha De La Cruz 07/30/2024 2 [employer] (PPO) Radha De La Cruz [id number] Radha De La Cruz Notes Date Note Type Note Provider Name and Address Organization Details Recorded Time 07/30/2024 text/html HPI: 68[address] [place] F with prediabetes presents with A1c 6.4, [...] : Allergy symptoms (implied by meds) YEISON FRANCIS, MAYRA [address], [place], [address], [place] [facility]. 07/30/2024 18:18:02 OBGyn Episode No OBEpisode recorded.
--- OUTSIDE RECORDS SUMMARY | 2024-07-30 20:00 | XMS_ITS ---
Author Organization Unknown Address [address] [place] [phone] Phone Care Team Providers Care Trim And Burr Operator Name Role Phone PROVOST LATHAM Attending Unavailable Results MM SCREENING BILAT MAMMO W T DAPHNIE W CAD - Completed: 10/25/2023 15:52 LOINC: [facility] [place], [place] [address] PACS BLEND TECHNICIAN REPORT Patient Name: FACUNDO LEMOS MRN: Sex: : Age: [id number] F 1955 68 Account: Accession: Admit: StayType: [id number] 10/25/2023 O/P Ordered: Order ID: Submitted: Ordering Provider: 10/25/2023 15:30 [id number] KT YEISON FRANCIS Completed: Technologist: Resulted: 10/25/2023 [...] follow-up screening mammography is recommended, as per [employer] guidelines. BI-RADS Category 1, negative [...] em Smoking History Never smoker (Never Smoked) 569014216 SNOMED CT Sex Female Hospital Discharge Instructions [...] 1294 52 Active FDA Left BRYON 08/11 [id number] 2 10/27/2027 POLARS TEM 0383029 0 Metallic femoral head prosthesis 0103 5960 1047 4230 1728 1028 1018 KM26 320 Active FDA Left BRYON 08/11 [id number] 20 04/28/2028 OXINIU M 3341089 8 Non-constr ained polyethyle ne acetabular liner 0103 5960 1059 8790 1731 0918 1021 JM13 232 Active FDA Left BRYON 08/11 19GZ528 32 03/19/2031 R3 7297740 8 Acetabular shell 0103 5960 1059 7571 1731 1011 1021 KW04 022 Active FDA Left BRYON 08/11 15HE032 22 04/11/2031 R3 ACETAB ULAR 0216861 8 Acetabulum prosthesis hole plug 0103 5960 1019 7634 1731 0803 1021 HM04 644 Active FDA Left BRYON 08/11 03LB029 44 02/01/2031 REFLEC TION 1492826 0 Allergies and Adverse Reactions Allergy Substance Reaction Severity Start Date Concern Status Co de Code System No Known Drug Allergies Active 376229656 SNOMED-CT Plan of Treatment MM SCREEN BILAT 10/25/2023 MM SCREEN BILAT 01/19/2022 BONE DENSITY DEXA SPINE & HIP 2 X-RAY 08/03/2021 PRE-OP TESTING 08/01/2021 PRE-OP COVID-19 TESTING 08/09/2021 Encounters Encounter Diagnosis Start Date Code Code Sys tem Screening mammography 10/25/2023 05753395 SNOMED -CT Personal Care Team Section Performer Name Performer Role Active Date Inactive Da te
--- OUTSIDE RECORDS SUMMARY | 2024-07-30 20:00 | XMS_ITS ---
Author Organization Unknown Address [address] [place] [address] [phone] Phone Care Team Providers Care Special Education Assistant Name Role Phone NIMCO BARNES Attending Unavailable CARTER Castanon Primary Unavailable Results XR PELVIS AND HIP LAT LT* - Completed: 08/24/2022 16:11 LOINC: [facility] [place], [place] [address] PACS MUSHROOM FARMER REPORT Patient Name: FACUNDO LEMOS MRN: Sex: : Age: [id number] F 1955 66 Account: Accession: Admit: StayType: [id number] 08/24/2022 CLINIC Ordered: Order ID: Submitted: Ordering Provider: 08/24/2022 14:54 [id number] MOLLY KEEN Completed: Technologist: Resulted: 08/24/2022 14:54 [...] em Smoking History Never smoker (Never Smoked) 756742212 SNOMED CT Sex Female Hospital Discharge Instructions [...] 1294 52 Active FDA Left BRYON 08/11 X612543 2 10/27/2027 POLARS TEM 9684797 0 Metallic femoral head prosthesis 0103 5960 1047 4230 1728 1028 1018 KM26 320 Active FDA Left BRYON 08/11 32RC617 20 04/28/2028 OXINIU M 8860501 8 Non-constr ained polyethyle ne acetabular liner 0103 5960 1059 8790 1731 0918 1021 JM13 232 Active FDA Left BRYON 08/11 77UE303 32 03/19/2031 R3 6370179 8 Acetabular shell 0103 5960 1059 7571 1731 1011 1021 KW04 022 Active FDA Left BRYON 08/11 59VL745 22 04/11/2031 R3 ACETAB ULAR 6100965 8 Acetabulum prosthesis hole plug 0103 5960 1019 7634 1731 0803 1021 HM04 644 Active FDA Left BRYON 08/11 55CP276 44 02/01/2031 REFLEC TION 2754568 0 Allergies and Adverse Reactions Allergy Substance Reaction Severity Start Date Concern Status Co de Code System No Known Drug Allergies Active 625269071 SNOMED-CT Plan of Treatment MM SCREEN BILAT 10/25/2023 MM SCREEN BILAT 01/19/2022 BONE DENSITY DEXA SPINE & HIP 2 X-RAY 08/03/2021 PRE-OP TESTING 08/01/2021 PRE-OP COVID-19 TESTING 08/09/2021 Encounters Encounter Diagnosis Start Date Code Code Sys tem Hip joint prosthesis present 08/24/2022 147116555 SNOMED-CT Personal Care Team Section Performer Name Performer Role Active Date Inactive Da te
--- OUTSIDE RECORDS SUMMARY | 2024-07-30 20:01 | XMS_ITS | Continuity of Care Document ---
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 #[id number] The total time devoted to today's encounter, including both the tgkh-kr-cldl time with the patient and/or family/caregi fran and igs-myuc-zv-f aimee time I personally spent is 30 minutes in visit, 5 minutes prep, 5 minutes charting; total 40 minutes. Not available 04/30/2024 12:42:33 Plan of Treatment Reminders Order Date Submit Date Provider Last Modified By Organization Details Last Modified Time Details Appointments Follow Up 2024 05:30P M YEISON TITO Not available Not available Not available Chroni c Care Coordi nator 60 2024 01:00P M Ram[facility] Physician Not available Not available Not available Lab hemogl obin A1C, finger stick 2023 024 [email or web address] [facility], [address] [facility], [place], [address], 04/30/2024 12:35:44 microa lbumin /creat inine, ratio, urine 2023 024 [email or web address] [facility] (Registration ), [address] [place] [address] [place], [address], 05/08/2024 13:20:11 Referral None record ed. Procedures None record ed. Surgeries None record ed. Imaging None record ed. Medication Orders alendr demetrio 70 mg tablet 2023 [address], [place], [address], 04/30/2024 12:38:47 metfor min 500 mg tablet 2023 [address], [place], [address], 04/30/2024 12:42:38 atorva statin 20 mg tablet 2023 [address], [place], [address], 04/30/2024 12:38:48 cetiri zine 10 mg tablet 2023 [address], [place], [address], 04/30/2024 12:38:49 Patient TargetsNo targets recorded. Patient InstructionsNo instructions recorded. Reason for Referral None Reported. Results Created Date Observation Date Name Description Value Unit Range Abnormal Flag Note LastModifiedBy Organization Detail LastModifiedTime 04/30/20 24 04/30/2024 hemog lobin A1C, finge rstic k hemoglobin A1C 5.9 % <5.7 Not Available [address], [place], [address], 04/30/2024 11:44:47 Result Notes None recorded. Problems Name Problem SNOMED Code Status Onset Date Resolution Date Notes Provider Name and Address Organization Details Recorded Time Headache 16155218 Active 2016 Kelli arzola [facility] 11:33:42 Cough 61047215 Active 2016 Kelli arzola [facility] 11:33:28 Nicotine dependen ce 32206504 [facility] 11:34:05 Low back pain 349357871 [facility] 11:34:01 Eczema 37722751 Active 2020 Kelliher Seymour [facility] 4 11:33:36 Psychody namic relation ship finding 121976576 Active 2021 Kelli Seymour [facility] 4 11:34:25 Adult health examinat ion Active 2021 Kelli Seymour [facility] 4 11:33:21 Inactive tubercul osis 03678006 Active 2021 [facility] 4 11:33:57 Idiopath ic aseptic necrosis of bone 124185915 [facility] 4 11:33:55 Pre-surg loretta evaluati on Completed 202108/18/2021 Problem Code: Z01.818; Problem Code Type: ICD-10; Not Available [facility] 3 04:28:33 Hypergly cemia 83093873 Completed 202112/22/2021 Problem Code: R73.9; Problem Code Type: ICD-10; Not Available [facility], [facility] 3 04:28:33 Hyperlip idemia 16956526 Active 2021 [facility] 4 11:33:51 Prediabe kenneth 858626125 Active 2021 [facility] 4 11:34:10 Menopaus e present 457685662 Completed 202106/16/2022 Problem Code: Z78.0; Problem Code Type: ICD-10; Not Available [facility] 3 04:28:33 Heart murmur 54870788 Active 2021 Kelli Seymour [facility] 4 11:33:47 Senile osteopor osis 68564511 Active 2021 [facility] 4 11:34:29 Dizzines s and giddines s 471795082 Active 2021 [facility] Dawn [facility] 4 11:33:32 Tobacco dependen ce caused by cigarett es 96321385555 301421 Completed 201603/28/2023 Problem Code: F17.210; Problem Code Type: ICD-10; Not Available [facility] 3 04:28:34 Counseli ng Completed 201607/20/2021 Problem Code: Z71.89; Problem Code Type: ICD-10; Not Available [facility] 3 04:28:35 Screenin g for osteopor osis Completed 202106/16/2022 Problem Code: Z13.820; Problem Code Type: ICD-10; Not Available [facility] 3 04:28:37 Vitamin D deficien cy 82583475 Active 2022 Kelliher Seymour [facility] 4 11:34:38 Chronic cough 77233886 Active 2023 Kelliher Seymour [facility] 4 11:33:25 Fatigue 65107122 [facility] 4 11:33:39 Poor oral hygiene 893736911 Active 2023 Kelli Dawn [facility] 4 11:34:07 Allergic rhinitis 09224804 Active 2023 YEISON FRANCIS, [address], [place], [address] , [facility] 11:32:56 Dyspnea 681249524 Active [address], [facility] [address] , [facility] 11:54:38 Infectio n of tooth 688267650 Active [address], [address] , [facility] 10:51:40 Atopic dermatit is 02154881 Active [address], [facility] [address] , [facility] 12:38:42 Type 2 diabetes mellitus without complica tion 735404074 Active [address], [facility] [address] , [facility] 12:41:14 Uncontro lled type 2 diabetes mellitus 775825797 Active [address], [place], [address] , [facility] 12:41:31 Notes:*Problem Name: Unspeci fied fracture of [...] Updated DateTime 4 152.4 cm 22.7 kg/m2 00074.8 1 g 97.8 [degF] 110 mm[Hg] 68 mm[Hg] LUIS BURROWS LPN [facility] - [facility] 4 12:27:41 Social History Question Answer Notes LastModified by Organizat ion Details LastModified Time Tobacco Smoking Status Former Smoker LUZ FALCON RN [facility], [facility] 09/28/2023 10:15:23 When Did You Quit Smoking? 1-5yearssinc elastcigaret te [id number] Information not available 09/28/2023 Sex: Female Functional [...] mcg/0.3 mL 4 completed LUIS BURROWS LPN [facility], [facility] 04/30/2024 13:56:06 Influenza, high-dose, trivalent, PF 4 completed MAYRA MURRAY [address], [place], [address], [facility] 04/30/2024 12:37:51 Tdap 6 completed Not Available [facility], [facility] 05/11/2023 05:53:08 Influenza, split virus, quadrivalent, PF 1 completed Not Available [facility] 05/11/2023 05:53:09 Influenza, high-dose, quadrivalent, PF 2 completed Not Available [facility], [facility] 05/11/2023 05:53:10 COVID-19, mRNA, LNP-S, PF, 100 mcg/0.5mL dose or 50 mcg/0.25mL dose 1 completed Not Available [facility], [facility] 05/11/2023 05:53:10 COVID-19, mRNA, LNP-S, PF, 100 mcg/0.5mL dose or 50 mcg/0.25mL dose 1 completed Not Available [facility] 05/11/2023 05:53:10 COVID-19, mRNA, LNP-S, PF, 100 mcg/0.5mL dose or 50 mcg/0.25mL dose 2 completed Not Available [facility] 05/11/2023 05:53:10 COVID-19, mRNA, LNP-S, PF, 100 mcg/0.5mL dose or 50 mcg/0.25mL dose 1 completed Not Available [facility] 05/11/2023 05:53:11 COVID-19, mRNA, LNP-S, bivalent, PF, 30 mcg/0.3 mL dose 2 completed Not Available [facility] 05/11/2023 05:53:11 pneumococcal polysaccharide PPV23 2 completed Not Available [facility] 05/11/2023 05:53:11 influenza, unspecified formulation 6 completed Not Available [facility] 05/11/2023 05:53:11 Influenza, high-dose, quadrivalent, PF 3 completed Not Available [facility] 07/13/2023 05:33:06 Pneumococcal conjugate PCV20, polysaccharide [id number] conjugate, adjuvant, PF 3 completed Not Available [facility] 07/13/2023 05:33:06 Past Encounters Encounter ID Performer Location Encounter Start Date Encounter Closed Date Diagnosis/Indication Diagnosis SNOMED-CT Code Diagnosis ICD10 Code Diagnosis Note [id number] MAYRA MURRAY [address] [address] 04/30/2024 11:25:33 04/30/2024 12:18:38 Prediabetes 444520126 R73.03 Has not had metformin 1 month due to pharmacy closing. New prescripti on sent to [facility] in [facility]. A1c remains the same at 5.9%. Lifestyle modificati ons discussed with patient regarding diet, exercise and sleep hygiene. Patient is continuing with metformin 500 mg twice a day and follow-up in clinic in 3 for repeat A1c or sooner. Active or passive immunization 921928238 Z23 Dental Infection - resolved at this time- Patient has not yet establishe d [facility] with a dental officePlan :- Encourage patient to make an appointmen t with a dentist- Educate on the importance of dental care in preventing recurrent infections and potential heart disease Atopic dermatitis 235354 01 L20.9 Most likely related to allergies- Patient reports itch in throat and dry, itchy skin with dry patchesPla n:- Recommend using gentle, fragrance- free soaps and lotions- Prescribe cetirizine , once a day for allergies Hyperlipidemia 81955066 E78.5 Senile osteoporosis 1804 0001 M81.0 Poor oral hygiene 732413 009 R46.89 Poor dentition with multiple caries. Patient encouraged to make a dental appointmen t. Type 2 timothy betes mellitus without complication 045098965 E11.9 Health Concerns Section Related Observation LastModified by Organization Detai ls LastModified Time None Recorded Concern Status LastModified by Organization Details LastModified Time None Recorded Payers Encounter Date Sequence Insurance Name Policy Number Policy Vargas Covered Member ID Vargas Member ID Guarantor Name 04/30/2024 1 [employer] (MEDICARE REPLACEMENT/A DVANTAGE - PPO) [id number] Le [id number] Le Notes Date Note Type Note Provider Name and Address Organization Details Recorded Time 04/30/2024 text/html Visit conducted using online insurance healthcare representative #[id number] 68-year-old Croatian speaking female presents today for a follow-up [...] symptoms are due to allergies. YEISON FRANCIS, MAILROOM MANAGER [address], [place], [address], [facility]. 04/30/2024 12:43:29 OBGyn Episode No OBEpisode recorded.
[2024-07-30 22:01] LABS: COMMENT (LAB VIEW ONLY) 25.51 mg/dL; PROTEIN < 6.0 mg/dL
== END 2024-07-30 19:44 | disposition home or self-care (01) ==
LOC: NCHCN 19:43
PROVIDERS: Visit Provider Family Medicine
DX: E11.9 Type 2 diabetes mellitus without complications (principal)
CPT/HCPCS: 82565; 84156

== ENCOUNTER 2025-02-04 18:48 | Outpatient (REF) | payer MEDICARE, SELFPAY ==
[2025-02-04 20:20] LABS: ALT 19 U/L (14-59); AST 31 U/L (15-37); Albumin 3.7 g/dL (3.4-5.0); Alkaline Phosphatase 58 U/L (46-116); Anion Gap 6.5 mmol/L (3-11); BUN 9 mg/dL (7-18); Bilirubin, Total 0.2 mg/dL (0.2-1.0); CO2 28.5 mmol/L (21.0-32.0); Calcium 9.0 mg/dL (8.5-10.1); Calculated LDL 66 mg/dL (<100); Chloride 104 mmol/L (98-107); Cholesterol 150 mg/dL (<200); Estimated GFR 95.90 (mL/min/1.73m2); Glucose 173 mg/dL (74-106); HDL Cholesterol 64 mg/dL (>or=50); Potassium 4.0 mmol/L (3.5-5.1); Sodium 139 mmol/L (136-145); Total Protein 7.3 g/dL (6.4-8.2); Triglyceride 100 mg/dL (<150)
[2025-02-04 20:22] LABS: Hemoglobin A1C 6.0 % (<5.7)
== END 2025-02-04 18:49 | disposition home or self-care (01) ==
LOC: NCHCN 18:48
PROVIDERS: Visit Provider Family Medicine
DX: E11.9 Type 2 diabetes mellitus without complications (principal); E78.5 Hyperlipidemia, unspecified
CPT/HCPCS: 80053; 80061; 83036